=== PATIENT | female | born 1930 | race Caucasian/White ===

== ENCOUNTER → 2016-12-30 | Outpatient (CLI) | payer OTHER ==
[~2016-12-30] MED LIST: ACCUPRIL40 MG PO; ACETAMINOPHEN325 M1 PO; ACTOPLUS MET 11 EAC1 PO; ACTOS 30 MG TAB30 M2 PO; AMLODIPINE BESYL5 MG PO; AZITHROMYCIN 2250 MG PO; BENICAR; BENICAR HCT 401 EACH PO; BENICAR20 MG PO; BISACODYL SUPP10 MG RECTAL; BYSTOLIC10 MG PO; CALCIUM 500 +1 EAC5 PO; COLACE100 MG PO; CONSTULOSE10 GM/152; COUMADIN 2 MG TA2 M1 PO; COUMADIN 5 MG TA5 M1; DEMADEX20 MG PO; ENOXAPARIN30 MG/0.1 SUBQ; FENTANYL PA25 MCG/HR TRANSDERM; FENTANYL PA50 MCG/HR TRANSDERM; FISH OIL 1,001000 M1 PO; FISH OIL 1,001000 M2 PO; FLOMAX0.4 MG PO; GENERLAC10 GM/15 M PO; HYDROCODON-ACE1 EAC7 PO; HYDROCODON-ACE1 EACH PO; HYDROCODONE; HYDROCODONE-AP1 EAC6; HYDROCODONE-APA1 TA1 PO; IRON160 M1 PO; IRON325 PO; LASIX 20 MG TAB20 MG PO; LEVOXYL50 MCG PO; LIDODERM 5%1 PATC1 TOP; LIPITOR10 MG PO; LOPRESSOR25 PO; METFORM; METHADONE HCL 110 M1 PO; MIRALAX17 GM PO; NEURONTIN 300300 M1 PO; NOVOLOG100 UNIT/1 SUBQ; OLMSRTN-AMLDPN1 EAC3 PO; OXYCONTIN10 M1 PO; OXYCONTIN20 M1 PO; PERCOCET 10-321 EACH PO; PERCOCET 5-3251 EACH PO; PIOGLITAZONE-M1 EAC1 PO; PIOGLITAZONE15 MG PO; PLOGLITAZONE; PRILOSEC 20 MG20 MG PO; PRILOSEC20 MG PO; PROCRIT 1010000 U/M1 SUBQ; QUINAPRIL 20 MG20 MG PO; QUINAPRIL PO; RENAL CAPS SOFTG1 MG PO; RESTORIL15 MG PO; RESTORIL30 MG PO; RISAMINE OINTM113 GM TOP; SENOKOT-S1 TA1 PO; SERTRALINE HCL25 M1 PO; SERTRALINE HCL50 MG PO; SIMVASTATIN40 MG PO; TOPROL XL25 MG PO; TRAMADOL 50 MG50 MG PO; TRIBENZOR 40-11 EACH PO; TRIGLIDE160 M1 PO; VITAMIN D1000 UNI1 PO; VITAMIN D31000 UNI2 PO; ZOCOR20 MG PO; [UNRECOGNIZED DRUG - OTHER]; [UNRECOGNIZED DRUG - OTHER] PO
== END ==
LOC: ULTRA 14:04
DX: M79.89 Other specified soft tissue disorders (principal); M79.604 Pain in right leg; M79.605 Pain in left leg

== ENCOUNTER → 2017-10-05 | Outpatient (CLI) | payer OTHER ==
[~2017-10-05] MED LIST changes: +ALPRAZOLAM 0.0.25 M1 PO; +AMARYL1 MG PO; +CEFUROXIME250 MG PO; +METFORMIN HCL500 MG PO; +NEURONTIN600 MG PO; +SENOKOT-S TABL1 EACH PO; -SENOKOT-S1 TA1 PO; +SLOW RELEASE I143 MG PO; +SODIUM BICARBO650 M3 PO; +VOLTAREN100 GM; +ZOLOFT100 MG PO; +ZOLOFT50 MG PO
== END ==
LOC: RAD 14:03
DX: M16.52 Unilateral post-traumatic osteoarthritis, left hip (principal); M41.86 Other forms of scoliosis, lumbar region; M51.36 Other intervertebral disc degeneration, lumbar region; I70.8 Atherosclerosis of other arteries; Z96.642 Presence of left artificial hip joint

== ENCOUNTER 2018-06-17 08:24 | Emergency (ER) | payer OTHER ==
[~2018-06-17] VITALS: Ht 167.6 cm; Wt 63.5 kg
[~2018-06-17 08:24] MED LIST changes: -ALPRAZOLAM 0.0.25 M1 PO; -AMARYL1 MG PO; -CEFUROXIME250 MG PO; -SENOKOT-S TABL1 EACH PO; +SENOKOT-S1 TA1 PO; -ZOLOFT100 MG PO; -ZOLOFT50 MG PO
[2018-06-17] MEDS ORDERED: TRAMADOL 50 MG50 MG PO (12:02)
== END 2018-06-17 12:12 | disposition home or self-care (01) ==
LOC: ER 08:24
PROC: 0PSVXZZ Reposition Left Finger Phalanx, External Approach (ICD-10-PCS; principal; 2018-06-17)
DX: S62.615A Displaced fracture of proximal phalanx of left ring finger, initial encounter for closed fracture (principal); S22.089A Unspecified fracture of T11-T12 vertebra, initial encounter for closed fracture; I10 Essential (primary) hypertension; E78.00 Pure hypercholesterolemia, unspecified; E03.9 Hypothyroidism, unspecified; E11.9 Type 2 diabetes mellitus without complications; Z90.49 Acquired absence of other specified parts of digestive tract; M54.9 Dorsalgia, unspecified; G89.29 Other chronic pain; Z88.0 Allergy status to penicillin; Z88.5 Allergy status to narcotic agent; W01.0XXA Fall on same level from slipping, tripping and stumbling without subsequent striking against object, initial encounter; Y93.89 Activity, other specified; Y92.89 Other specified places as the place of occurrence of the external cause; Y99.8 Other external cause status

== ENCOUNTER 2018-06-24 10:49 | Inpatient (IN) | payer OTHER ==
[~2018-06-24] VITALS: Ht 160 cm; Wt 66.2 kg
--- NOTE | ~2018-06-24 | D ---
[facility] [place] [address] DISCHARGE SUMMARY Name: CHASIDY DOLL Room #: 217-P [facility] IN M.R.#: [id number] Admission: 06/24/18 Attend Phys: Adal Mcintyre Discharge: 06/29/18 Date of : 30 Report #: [id number] THIS REPORT FOR: //name// CC: Rahul Ojeda FINAL DIAGNOSES: 1. Urinary tract infection. 2. Chronic kidney disease, stage 3. 3. Hypertension. 4. Diabetes type 2. 5. Anemia of chronic disease. 6. Debility. 7. Depression. HOSPITAL COURSE: The patient was admitted with weakness. Ultimately, she was found to have a urinary tract infection and treated with antibiotics. During the course of her stay, she learned that her had suddenly, she was tearful and distraught as to be expected. She had family support. I increased her Zoloft and added just some p.r.n. doses of Xanax. She seemed to adjust to the news relatively well and stabilized. She had no other interval complication. PHYSICAL EXAMINATION: GENERAL: On the day of discharge, she was awake and alert, in no distress. LUNGS: Clear. HEART: Regular. ABDOMEN: Soft, normoactive bowel sounds. EXTREMITIES: No edema. DISPOSITION: She will be discharged home with diet and activity as tolerated. She will continue metoprolol, Tylenol, Zoloft 50 mg, Ceftin for 5 more days, Tylenol, Ultram and p.r.n. Xanax. Follow up with Dr. Ojeda in 1 week. Home health to be ordered. Her discharge was held to other day as she was making arrangements for prison placement. <ELECTRONICALLY SIGNED> By: Aleksandar Odom MD 06/30/18 1349 1054 1159 Aleksandar Odom MD /nt
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
[2018-06-24 13:48] LABS: HEMATOCRIT 31.6 % (37.0-47.0); HEMOGLOBIN 10.5 gm/dL (12.0-15.0); MCH 29.8 pg (26.0-34.0); MCV 90.1 fL (80.0-100.0); RBC 3.51 mil/uL (4.20-5.00); RDW 15.2 % (10.5-14.5); WBC 6.2 thou/uL (4.0-11.0)
[2018-06-24 14:02] LABS: ALBUMIN 3.5 g/dL (3.4-5.0); CALCIUM 8.9 mg/dL (8.5-10.1); CREATININE 1.1 mg/dL (0.6-1.0); POTASSIUM 4.5 mmol/L (3.5-5.1); TOTAL BILIRUBIN 0.6 mg/dL (<0.1-1.0); TOTAL PROTEIN 7.1 g/dL (6.4-8.2)
[2018-06-24] MEDS ORDERED: ZOLOFT50 MG PO (14:21)
[2018-06-24] MEDS ORDERED: NEURONTIN600 MG PO (14:22)
[2018-06-24] MEDS ORDERED: METFORMIN HCL500 MG PO (14:22)
[2018-06-24] MEDS ORDERED: AMARYL1 MG PO (14:23)
[2018-06-24 15:58] LABS: URINE BILIRUBIN NEGATIVE (Negative); URINE BLOOD TRACE (Negative); URINE CLARITY CLEAR; URINE COLOR YELLOW; URINE GLUCOSE-RANDOM* NEGATIVE (Negative); URINE KETONES NEGATIVE (Negative); URINE LEUKOCYTES-REFLEX NEGATIVE (Negative); URINE PROTEIN (DIPSTICK) 2+ (Negative); URINE UROBILINOGEN 0.2 E.U./dl (0.2-1.0)
[2018-06-24 16:04] LABS: URINE NITRITE-REFLEX POSITIVE (Negative)
[2018-06-24 16:31] LABS: BACTERIA-REFLEX >30 Many /HPF (None Seen); CASTS None Seen /LPF (None Seen); CRYSTALS None Seen /LPF (None Seen); SQUAMOUS 0-3 Few /LPF (0-3); URINE RBC 0-2 Rare /HPF (0-2); URINE WBC-REFLEX None Seen /HPF (0-5)
[2018-06-24 17:09] VITALS: BP 176/80
[2018-06-24 20:35] VITALS: BP 157/67
[2018-06-25] VITALS (7 sets, daily range): BP systolic 145–170; BP diastolic 55–82
[2018-06-26 04:45] VITALS: BP 145/52
[2018-06-26 07:25] VITALS: BP 162/59
[2018-06-26 11:55] VITALS: BP 148/53
[2018-06-26 16:05] VITALS: BP 143/52
[2018-06-26 20:12] VITALS: BP 132/86
[2018-06-26 20:44] VITALS: BP 124/54
[2018-06-27 05:02] VITALS: BP 150/63
[2018-06-27 08:00] VITALS: BP 150/48
[2018-06-27 11:30] VITALS: BP 151/58
[2018-06-27 16:00] VITALS: BP 150/70
[2018-06-27 20:35] VITALS: BP 146/49
[2018-06-28 03:31] LABS: HEMATOCRIT 27.8 % (37.0-47.0); HEMOGLOBIN 9.1 gm/dL (12.0-15.0); MCH 29.5 pg (26.0-34.0); MCHC 32.6 g/dL (28.0-37.0); MCV 90.5 fL (80.0-100.0); RBC 3.07 mil/uL (4.20-5.00); RDW 15.8 % (10.5-14.5); WBC 4.6 thou/uL (4.0-11.0)
[2018-06-28 03:42] LABS: CALCIUM 8.4 mg/dL (8.5-10.1); CREATININE 1.1 mg/dL (0.6-1.0); POTASSIUM 4.8 mmol/L (3.5-5.1)
[2018-06-28 04:45] VITALS: BP 138/46
[2018-06-28 07:54] VITALS: BP 159/53
[2018-06-28 11:45] VITALS: BP 154/60
[2018-06-28 15:03] VITALS: BP 144/59
[2018-06-28 20:30] VITALS: BP 158/68
[2018-06-29] VITALS (7 sets, daily range): BP systolic 106–173; BP diastolic 61–67
[2018-06-29] MEDS ORDERED: ZOLOFT100 MG PO (10:40)
[2018-06-29] MEDS ORDERED: ALPRAZOLAM 0.0.25 M1 PO (10:40)
[2018-06-29] MEDS ORDERED: CEFUROXIME250 MG PO (10:41)
== END 2018-06-29 16:32 | disposition home health service (06) | DRG 690 ==
LOC: 2N 10:49 → ENTRNSPT 06-29 16:24 → 2N 06-29 16:32
PROVIDERS: Internal Medicine Geriatric Medicine
DX: N39.0 Urinary tract infection, site not specified (principal); I12.9 Hypertensive chronic kidney disease with stage 1 through stage 4 chronic kidney disease, or unspecified chronic kidney disease; N18.3 Chronic kidney disease, stage 3 (moderate); E11.22 Type 2 diabetes mellitus with diabetic chronic kidney disease; R54 Age-related physical debility; F41.9 Anxiety disorder, unspecified; D63.8 Anemia in other chronic diseases classified elsewhere; F32.9 Major depressive disorder, single episode, unspecified; Z90.49 Acquired absence of other specified parts of digestive tract; Z95.1 Presence of aortocoronary bypass graft; Z79.82 Long term (current) use of aspirin; Z79.899 Other long term (current) drug therapy; Z88.0 Allergy status to penicillin; Z88.5 Allergy status to narcotic agent; Z28.21 Immunization not carried out because of patient refusal
CPT/HCPCS: 10081

== ENCOUNTER 2018-07-12 17:14 | Inpatient (IN) | payer OTHER ==
[~2018-07-12] VITALS: Ht 160 cm; Wt 58.5 kg
--- NOTE | ~2018-07-12 | H ---
[facility] [place] [address] HISTORY AND PHYSICAL Name: CHASIDY DOLL Room #: 226-P ADM IN M.R.#: [id number] Admission: 07/12/18 Attend Phys: Aleksandar Odom MD Discharge: Date of : 30 Report #: [id number] THIS REPORT FOR: //name// CC: Rahul Odom DATE OF SERVICE: 07/12/2018 CHIEF COMPLAINT: Weakness. HISTORY OF PRESENT ILLNESS: The patient is an 88-year-old female with multiple medical problems, is admitted from the office with complaints of weakness. She reports "just not feeling well." When I asked her in regards to specific symptoms, she says she just feels weak and tired and does not want to do anything, eat, get out of bed and just feels "weak all over." I asked her specifically about chest pain, shortness of breath, abdominal symptoms, which she denies. She has had several recent hospitalizations and skilled stays along with home health and a caregiver at home. Unfortunately, her a little over 2 weeks ago while she was hospitalized, she says that has been a big loss and she just does not feel well. PAST MEDICAL HISTORY: Diabetes type 2, hypothyroidism, hypertension, chronic kidney disease stage 3-4, anemia of chronic disease. PAST SURGICAL HISTORY: She has had a hip fracture repair. FAMILY HISTORY: Noncontributory. SOCIAL HISTORY: She was living in her home with supportive caregiver 10 hours a day. She has supportive family in town. No chronic alcohol or tobacco use. ALLERGIES: PENICILLIN and MORPHINE. MEDICATIONS: Metoprolol, Flomax, tramadol, Zoloft, Levoxyl. REVIEW OF SYSTEMS: She denies headache, chest pain, shortness of breath, nausea, vomiting, abdominal pain, diarrhea, constipation, dysuria, syncope, joint pain. OBJECTIVE: VITAL SIGNS: Temperature 36.9, pulse 53, respirations 16, blood pressure 169/84, O2 sat 94% on room air. GENERAL: She is awake and alert, lying in bed in a dark room. She has not eaten breakfast. HEAD AND NECK: Unremarkable. LUNGS: Clear. [facility] [address] [place] [address] HISTORY AND PHYSICAL Name: CHASIDY DOLL Room #: 226-P ADM IN M.R.#: [id number] Admission: 07/12/18 Attend Phys: Aleksandar Odom MD Discharge: Date of : 30 Report #: [id number] HEART: Regular. ABDOMEN: Soft, normoactive bowel sounds. EXTREMITIES: No edema. NEUROLOGIC: Motor strength intact throughout, globally about 3-4/5. LABORATORY DATA: Reviewed. ASSESSMENT: 1. General weakness. 2. Hypertension. 3. Chronic kidney disease, stage 3. 4. Anemia of chronic disease. 5. Situational depression. 6. Mild protein-calorie malnutrition. PLAN: We will try to rule out any medical cause of her symptoms; however, we cannot ignore the fact that her and there may be a significant emotional component here. Her Zoloft has already been increased to 100 mg a day. I will have social work talk to her and try with therapy. I will need to see what direction the family wants to go. She may need 24-hour care at this point. <ELECTRONICALLY SIGNED> By: Aleksandar Odom MD 07/13/18 1218 1029 1127 Aleksandar Odom MD /nt
--- NOTE | ~2018-07-12 | D ---
[facility] [place] [address] DISCHARGE SUMMARY Name: CHASIDY DOLL Room #: 226-P [facility] IN M.R.#: [id number] Admission: 07/12/18 Attend Phys: Aleksandar Odom MD Discharge: 07/15/18 Date of : 30 Report #: [id number] THIS REPORT FOR: //name// CC: Rahul Odom FINAL DIAGNOSES: 1. Age-related debility. 2. Situational depression. 3. Hypertension. 4. Chronic kidney disease stage 4. 5. Diabetes type 2. HOSPITAL COURSE: The patient was admitted from home with weakness. A stroke and infection were ruled out. Other lab data was fairly consistent with baseline known kidney disease. Blood sugars were stable off oral treatment. She declined psychiatric referral for adjustment of her medication. Otherwise, usual medicines were continued from home. She participated with therapy and appetite was improved. As mentioned, stroke was ruled out with a CT. PHYSICAL EXAMINATION: GENERAL: On the day of discharge, she was awake and alert. VITAL SIGNS: Stable. LUNGS: Clear. HEART: Regular. ABDOMEN: Soft, normoactive bowel sounds. EXTREMITIES: No edema. DISPOSITION: To be discharged to home with home health, diabetic diet, activity as tolerated, resume all usual medications. Follow up with Dr. Ojeda 2 weeks. <ELECTRONICALLY SIGNED> By: Aleksandar Odom MD 07/16/18 1110 1039 1318 Aleksandar Odom MD /terry
[~2018-07-12 17:14] MED LIST changes: +ALPRAZOLAM 0.0.25 M1 PO; +AMARYL1 MG PO; +CEFUROXIME250 MG PO; +SENOKOT-S TABL1 EACH PO; -SENOKOT-S1 TA1 PO; +ZOLOFT100 MG PO; +ZOLOFT50 MG PO
[2018-07-12 17:44] VITALS: BP 172/90
[2018-07-12 19:48] VITALS: BP 175/83
[2018-07-13 00:08] VITALS: BP 179/88
[2018-07-13 04:29] LABS: HEMATOCRIT 27.7 % (37.0-47.0); HEMOGLOBIN 9.1 gm/dL (12.0-15.0); MCH 29.4 pg (26.0-34.0); MCHC 32.9 g/dL (28.0-37.0); MCV 89.2 fL (80.0-100.0); RBC 3.11 mil/uL (4.20-5.00); RDW 15.8 % (10.5-14.5); WBC 5.5 thou/uL (4.0-11.0)
[2018-07-13 04:54] LABS: CREATININE 1.3 mg/dL (0.6-1.0); POTASSIUM 4.4 mmol/L (3.5-5.1); TOTAL BILIRUBIN 0.5 mg/dL (<0.1-1.0); TOTAL PROTEIN 6.2 g/dL (6.4-8.2)
[2018-07-13 05:47] VITALS: BP 157/62
[2018-07-13 08:22] VITALS: BP 169/84
[2018-07-13 08:31] VITALS: BP 169/84
[2018-07-13 21:12] VITALS: BP 159/70
[2018-07-13 23:41] LABS: URINE BILIRUBIN NEGATIVE (Negative); URINE BLOOD 2+ (Negative); URINE CLARITY CLEAR; URINE COLOR YELLOW; URINE GLUCOSE-RANDOM* NEGATIVE (Negative); URINE KETONES NEGATIVE (Negative); URINE LEUKOCYTES-REFLEX NEGATIVE (Negative); URINE NITRITE-REFLEX NEGATIVE (Negative); URINE PROTEIN (DIPSTICK) 3+ (Negative); URINE SPECIFIC GRAVITY >= 1.030 (1.005-1.035); URINE UROBILINOGEN 0.2 E.U./dl (0.2-1.0)
[2018-07-13 23:54] LABS: MUCUS 0-3 Light strn/LPF (None Seen); SQUAMOUS 0-3 Few /LPF (0-3)
[2018-07-13 23:55] LABS: BACTERIA-REFLEX None Seen /HPF (None Seen); COARSE GRANULAR CASTS 0-3 Few /LPF (None Seen); CRYSTALS None Seen /LPF (None Seen); HYALINE CASTS 0-3 Few /LPF (None Seen); URINE RBC 0-2 Rare /HPF (0-2); URINE WBC-REFLEX 0-5 Rare /HPF (0-5)
[2018-07-14 08:30] VITALS: BP 175/119
[2018-07-14 21:11] VITALS: BP 155/65
[2018-07-15 08:07] VITALS: BP 149/60
[2018-07-15 08:29] VITALS: BP 149/60
== END 2018-07-15 18:45 | disposition home health service (06) | DRG 948 ==
LOC: SICU 17:14 → 3W 17:14 → SICU 07-13 09:10 → ENTRNSPT 07-15 17:40 → SICU 07-15 18:45
PROVIDERS: Internal Medicine; Internal Medicine Geriatric Medicine
DX: R53.1 Weakness (principal); E44.1 Mild protein-calorie malnutrition; N18.4 Chronic kidney disease, stage 4 (severe); R54 Age-related physical debility; F32.9 Major depressive disorder, single episode, unspecified; I12.9 Hypertensive chronic kidney disease with stage 1 through stage 4 chronic kidney disease, or unspecified chronic kidney disease; E11.22 Type 2 diabetes mellitus with diabetic chronic kidney disease; D63.8 Anemia in other chronic diseases classified elsewhere; E03.9 Hypothyroidism, unspecified; Z87.81 Personal history of (healed) traumatic fracture; Z79.899 Other long term (current) drug therapy; Z88.0 Allergy status to penicillin; Z88.5 Allergy status to narcotic agent; Z23 Encounter for immunization
CPT/HCPCS: 10779; 15002

== ENCOUNTER 2018-07-17 11:13 | Inpatient (IN) | payer OTHER ==
[~2018-07-17] VITALS: Ht 160 cm; Wt 63.5 kg
--- NOTE | ~2018-07-17 | EKG ---
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 : 1930 Requested By: Esther Schuler Order Number: [id number] MD: Ramon Rodas Measurements Intervals [place] Rate: 72 P: 103 LA: 179 QRS: 105 QRSD: 108 T: 234 QT: 449 QTc: 492 Interpretive Statements Sinus arrhythmia Anterior infarct, age indeterminate Compared to ECG 05/21/2018 15:23:24 Ectopic atrial rhythm no longer present Incomplete right bundle-branch block no longer present ST (T wave) deviation no longer present Myocardial infarct finding still present Electronically Signed On 07-18-2018 10:19:10 LOIN PULLER by Ramon Rodas [email or web address] <ELECTRONICALLY SIGNED> By: Ramon Rodas MD 07/18/18 1019 1127 1127 Ramon Rodas MD /EPI
--- NOTE | ~2018-07-17 | H ---
[facility] [place] [address] HISTORY AND PHYSICAL Name: CHASIDY DOLL Room #: 224-P ADM IN M.R.#: [id number] Admission: 07/17/18 Attend Phys: Aleksandar Odom MD Discharge: Date of : 30 Report #: [id number] THIS REPORT FOR: //name// CC: Rahul Odom DATE OF SERVICE: 07/17/2018 CHIEF COMPLAINT: Weakness. HISTORY OF PRESENT ILLNESS: The patient is an 88-year-old female who came back to the Emergency Room with weakness. Her daughter called saying that she had been lying in bed for 24 hours and really had not been eating or drinking much. She is refusing to get out of bed. This was similar to her hospitalization last week. She had previously been seen in the office about 10 days ago and then again about a week ago. At that point, she was admitted. Last hospitalization, lab data was basically stable per baseline. Blood sugars and vitals were stable. Urinalysis was negative for signs of infection, in fact did not require culture. The last 2 days of her hospital stay most recently she was up and alert, eating, working with therapy to some degree and had a more active pleasant mood, especially with the presence of her caregiver. She was discharged home last and then her daughter says that she spent most of Thursday into Thursday lying in bed. Today, she says she just "does not feel well," but really cannot specify anything. She does not have any chest pain, shortness of breath, fever, productive cough, nausea, vomiting, diarrhea, dysuria or generalized pain. She says overall she just does not feel well. PAST MEDICAL HISTORY: Hypertension, chronic kidney disease stage 3, diabetes type 2, venous stasis. She has an old hip fracture. Remote history of coronary disease, depression, hypothyroidism. PAST SURGICAL HISTORY: Noncontributory. FAMILY HISTORY: Unknown. SOCIAL HISTORY: Her 3 weeks ago. No chronic alcohol or tobacco use. ALLERGIES: PENICILLIN AND MORPHINE. MEDICATIONS: Flomax, metoprolol, tramadol, Tylenol, Zoloft, Senokot, Levoxyl. REVIEW OF SYSTEMS: She denies headache, chest pain, fever, chills, GI symptoms, dysuria or hematuria, joint pain, orthopnea. OBJECTIVE: [address] [address] [facility] IN M.R.#: [id number] Admission: 07/17/18 Attend Phys: Aleksandar Odom MD Discharge: Date of : 30 Report #: [id number] VITAL SIGNS: Temperature 36.3, pulse 65, respirations 18, blood pressure 157/67, O2 sat 94-97% on room air. GENERAL: She is awake and alert, lying in bed. HEAD AND NECK: Unremarkable. LUNGS: Clear. HEART: Regular. ABDOMEN: Soft, normoactive bowel sounds. EXTREMITIES: No edema. NEUROLOGIC: Global strength 3/5 throughout. LABORATORY DATA: Urinalysis now showing 2+ leukocyte esterase, 6-15 white blood cells and few bacteria. Cultures pending. White count normal, hemoglobin 10, creatinine 1.1. BNP was 30,000. TSH 2. Chest x-ray suggesting pulmonary edema. ASSESSMENT: 1. Cystitis, acute. 2. Hypertensive heart disease. 3. Chronic kidney disease, stage 3. 4. Diabetes type 2. 5. Situational depression with recent loss of her . 6. Pulmonary edema. PLAN: Empiric antibiotics have been ordered pending the culture based on her urinalysis from about a month ago and culture then. I will repeat her echo compare to 2 years ago to assess LV function. Despite elevated BNP and chest x-ray finding she denies any respiratory symptoms and her sats are stable. I will resume a low dose of torsemide with followup lab data, incentive spirometry therapies, increase activity and social work assessment for her placement needs. <ELECTRONICALLY SIGNED> By: Aleksandar Odom MD 07/19/18 0900 0816 1135 Aleksandar Odom MD /nt
--- NOTE | ~2018-07-17 | 2DMMODE ---
[facility] [address] [place] [address] 2 D/M-MODE ECHOCARDIOGRAM Name: CHASIDY DOLL Room #: 224-P ADM IN M.R.#: [id number] Admission: 07/17/18 Attend Phys: Adal Hills Discharge: Date of : 30 Date of Service: 07/19/18 1353 Report #: [id number] THIS REPORT FOR: //name// APPROVED REPORT Study performed: 07/19/2018 11:55:08 EXAM: Comprehensive 2D, Doppler, and color-flow Echocardiogram Patient Location: Bedside Room #: 224 Status: routine BSA: 1.66 HR: 65 bpm BP: 156/65 mmHg Rhythm: NSR Other Information Study Quality: Adequate Indications Diabetes CAD Hypertension/HDD 2D Dimensions RVDd: 44.87 mm IVSd: 12.00 (7-11mm) LVOT Diam: 20.85 (18-24mm) LVDd: 53.00 mm PWd: 13.00 (7-11mm) Ascending Ao: 37.87 (22-36mm) LVDs: 43.00 (25-40mm) Aortic Root: 31.94 mm IVC: 2310.00 mm Volumes Left Atrial Volume (Systole) Single Plane 4CH: 39.97 mL Single Plane 2CH: 84.27 mL LA ESV Index: 38.42 mL/m2 Aortic Valve AoV Peak Ga.: 1.77 m/s AO Peak Gr.: 12.56 mmHg LVOT Max P.76 mmHg LVOT Max V: 0.83 m/s JAYLON Vmax: 1.60 cm2 AI Vmax: 4.26 m/s AI Coosa: 2.98 m/s2 [facility] [address] [address] 2 D/M-MODE ECHOCARDIOGRAM Name: CHASIDY DOLL Room #: 224-[facility]#: [id number] Admission: 07/17/18 Attend Phys: Adal Hills Discharge: Date of : 30 Date of Service: 07/19/18 1353 Report #: [id number] AI PHT: 415.05 ms Mitral Valve E/A Ratio: 2.0 MV Decel. Time: 155.20 ms MV E Max Ga.: 1.05 m/s MV A Ga.: 0.53 m/s MV Max Ga.: 6.51 m/s MV Mean Ga.: 4.70 m/s MV PHT: 45.01 ms IVRT: 101.50 ms Pulmonary Valve PV Peak Ga.: 0.75 m/s PV Peak Gr.: 2.30 mmHg OH End Vmax: 1.56 m/s Tricuspid Valve TR Peak Ga.: 3.57 m/s RAP Estimate: 10.00 mmHg TR Peak Gr.: 50.96 mmHg PA Pressure: 61.00 mmHg Left Ventricle The left ventricle is normal size. There is global hypokinesis of the left ventricle. Mild concentric left ventricular hypertrophy. Left ventricular systolic function is moderately decreased. LVEF is 30-35%. The left ventricular diastolic function is abnormal. Right Ventricle The right ventricle is normal size. Right ventricular systolic function is moderately reduced. Atria Left atrium is dilated. Right atrium is dilated. Aortic Valve Aortic valve is calcified. Mild aortic regurgitation. There is no aortic valvular stenosis. Mitral Valve The mitral valve is normal in structure. Moderate to severe mitral regurgitation No evidence of mitral valve stenosis. Tricuspid Valve The tricuspid valve is normal in structure. Moderate tricuspid regurgitation. Estimated PAP of 60 mmHg. [facility] [address] [place] [address] 2 D/M-MODE ECHOCARDIOGRAM Name: CHASIDY DOLL Room #: 224-P [facility] IN M.R.#: [id number] Admission: 07/17/18 Attend Phys: Adal Hills Discharge: Date of : 30 Date of Service: 07/19/18 1353 Report #: [id number] Pulmonic Valve The pulmonary valve is normal in structure. Moderate pulmonic regurgitation. Great Vessels The aortic root is normal in size. The ascending aorta is mildly dilated. IVC is dilated and collapses <50% with inspiration. Pericardium There is no pericardial effusion. <Conclusion> Left ventricular systolic function is moderately decreased. LVEF is 30-35%. Both atria are dilated. Aortic valve is calcified. Mild aortic regurgitation, no stenosis. The mitral valve is normal in structure. Moderate to severe mitral regurgitation Moderate tricuspid regurgitation. Estimated pulmonary artery pressure of 60 mmHg. There is no pericardial effusion. <ELECTRONICALLY SIGNED> By: Gautam Montano MD, [facility] 07/19/18 1353 1353 135 Gautam Montano MD, FACC /INF
--- NOTE | ~2018-07-17 | D ---
[facility] [place] [address] DISCHARGE SUMMARY Name: CHASIDY DOLL Room #: 224-P [facility] IN M.R.#: [id number] Admission: 07/17/18 Attend Phys: Aleksandar Odom MD Discharge: 07/24/18 Date of : 30 Report #: [id number] THIS REPORT FOR: //name// CC: Rahul Odom DATE OF SERVICE: 07/24/2018 FINAL DIAGNOSES: 1. Cardiomyopathy. 2. Hypertension. 3. Diabetes type 2. 4. Chronic kidney disease, stage 4. 5. Depression. HOSPITAL COURSE: The patient was admitted with weakness from home. She has been having difficulties managing at home. After the loss of her , she has had an in-home caregiver, but at night, she is having difficulty when she is staying alone. She had general vague symptoms of "just not feeling well." Lab and x-ray data were obtained. Occult infection was ruled out including negative urine culture and antibiotics were discontinued. Echocardiogram revealed decreased ejection fraction around 30%, which is a change from 2 years ago. She was seen by Dr. Wilson. We both recommended just medical treatment with beta sis, ARB and diuretic. Diabetes was stable off oral medication, which has been consistent for several months. She declined Psychology or Psychiatry evaluation. She declined admission to skilled rehabilitation center. utility worker forge and myself worked with her family extensively to come up with a care plan at home, so she could remain stable. DISPOSITION: She is discharged to the care of her family to home with cardiac and diabetic diet. Home health. Follow up with Dr. Ojeda in 1 week. MEDICATIONS: Will be Coreg 3.125 mg twice a day, losartan 25 mg, aspirin 81 mg, torsemide 20 mg, Levoxyl 50 mcg, Tylenol, Senokot, Flomax, tramadol, Zoloft 100 mg. She is instructed to discontinue Lopressor. <ELECTRONICALLY SIGNED> By: Aleksandar Odom MD 07/27/18 1006 1331 1619 Aleksandar Odom MD /nt
[2018-07-17 11:17] VITALS: BP 184/69
[2018-07-17 11:48] LABS: ABSOLUTE NEUTROPHILS 4.2 thou/uL (1.4-8.2); BASOPHILS 0.7 % (0.0-2.0); HEMATOCRIT 30.2 % (37.0-47.0); HEMOGLOBIN 10.2 gm/dL (12.0-15.0); MCH 30.2 pg (26.0-34.0); MCHC 33.8 g/dL (28.0-37.0); MCV 89.3 fL (80.0-100.0); PLATELET COUNT 154 thou/uL (150-400); POLYS 69.3 % (36.0-66.0); RBC 3.39 mil/uL (4.20-5.00)
[2018-07-17 11:53] LABS: URINE BILIRUBIN NEGATIVE (Negative); URINE BLOOD 2+ (Negative); URINE CLARITY CLEAR; URINE COLOR YELLOW; URINE GLUCOSE-RANDOM* NEGATIVE (Negative); URINE KETONES NEGATIVE (Negative); URINE NITRITE-REFLEX NEGATIVE (Negative); URINE PROTEIN (DIPSTICK) 2+ (Negative); URINE SPECIFIC GRAVITY >= 1.030 (1.005-1.035); URINE UROBILINOGEN 0.2 E.U./dl (0.2-1.0)
[2018-07-17 11:56] LABS: ANION GAP 12 mmol/L (7-16); BUN 35 mg/dL (7-18); CALCIUM 8.8 mg/dL (8.5-10.1); CHLORIDE 105 mmol/L (98-107); CO2 23 mmol/L (21-32); CREATININE 1.1 mg/dL (0.6-1.0); GLUCOSE 180 mg/dL (74-106); POTASSIUM 4.2 mmol/L (3.5-5.1); SODIUM 140 mmol/L (136-145)
[2018-07-17 12:01] LABS: URINE LEUKOCYTES-REFLEX 2+ (Negative)
[2018-07-17 12:04] LABS: TROPONIN-I <0.06 ng/mL (<0.06)
[2018-07-17 12:11] LABS: AMORPHOUS URATES Moderate /LPF (None Seen); BACTERIA-REFLEX 1-9 Few /HPF (None Seen); CASTS None Seen /LPF (None Seen); SQUAMOUS None Seen /LPF (0-3); URINE RBC 3-10 Few /HPF (0-2); URINE WBC-REFLEX 6-15 Few /HPF (0-5)
[2018-07-17 13:03] VITALS: BP 178/75
[2018-07-17 13:20] VITALS: BP 174/62
[2018-07-17 13:43] VITALS: BP 164/79
[2018-07-17 16:05] VITALS: BP 149/56
[2018-07-17 20:00] VITALS: BP 175/56
[2018-07-18 04:30] VITALS: BP 178/74
[2018-07-18 07:15] VITALS: BP 157/67
[2018-07-18 20:00] VITALS: BP 156/65
[2018-07-19 06:53] LABS: HEMATOCRIT 29.8 % (37.0-47.0); HEMOGLOBIN 9.7 gm/dL (12.0-15.0); MCH 28.9 pg (26.0-34.0); MCHC 32.5 g/dL (28.0-37.0); RBC 3.35 mil/uL (4.20-5.00); RDW 15.6 % (10.5-14.5); WBC 4.8 thou/uL (4.0-11.0)
[2018-07-19 07:05] LABS: CALCIUM 8.6 mg/dL (8.5-10.1); CREATININE 1.3 mg/dL (0.6-1.0); POTASSIUM 4.2 mmol/L (3.5-5.1)
[2018-07-19 07:50] VITALS: BP 164/72
[2018-07-19 12:46] LABS: HEMATOCRIT 29.9 % (37.0-47.0); HEMOGLOBIN 9.8 gm/dL (12.0-15.0); MCH 28.8 pg (26.0-34.0); MCHC 32.8 g/dL (28.0-37.0); MCV 87.8 fL (80.0-100.0); RBC 3.41 mil/uL (4.20-5.00); RDW 15.5 % (10.5-14.5); WBC 5.2 thou/uL (4.0-11.0)
[2018-07-19 12:54] LABS: CREATININE 1.4 mg/dL (0.6-1.0); POTASSIUM 4.3 mmol/L (3.5-5.1)
[2018-07-19 12:55] LABS: CALCIUM 8.9 mg/dL (8.5-10.1)
[2018-07-19 22:51] VITALS: BP 145/57
[2018-07-20 07:25] LABS: HEMATOCRIT 28.3 % (37.0-47.0); HEMOGLOBIN 9.6 gm/dL (12.0-15.0); MCH 29.8 pg (26.0-34.0); MCV 87.6 fL (80.0-100.0); RBC 3.24 mil/uL (4.20-5.00); RDW 15.7 % (10.5-14.5); WBC 4.6 thou/uL (4.0-11.0)
[2018-07-20 07:43] LABS: CALCIUM 8.4 mg/dL (8.5-10.1); CREATININE 1.4 mg/dL (0.6-1.0); POTASSIUM 4.1 mmol/L (3.5-5.1); TOTAL BILIRUBIN 0.4 mg/dL (<0.1-1.0); TOTAL PROTEIN 5.8 g/dL (6.4-8.2)
[2018-07-20 08:09] VITALS: BP 179/60
[2018-07-20 11:52] VITALS: BP 155/66
[2018-07-20 18:18] VITALS: BP 174/71
[2018-07-20 22:53] VITALS: BP 142/51
[2018-07-21 07:39] LABS: CALCIUM 8.2 mg/dL (8.5-10.1); CREATININE 1.4 mg/dL (0.6-1.0); POTASSIUM 3.8 mmol/L (3.5-5.1)
[2018-07-21 07:41] VITALS: BP 153/57
[2018-07-21 20:12] VITALS: BP 130/50
[2018-07-22 08:12] VITALS: BP 136/55
[2018-07-22 08:12] LABS: CALCIUM 8.2 mg/dL (8.5-10.1); CREATININE 1.3 mg/dL (0.6-1.0); POTASSIUM 3.8 mmol/L (3.5-5.1)
[2018-07-22 09:52] VITALS: BP 136/55
[2018-07-22 19:23] VITALS: BP 139/53
[2018-07-22 19:44] VITALS: BP 139/53
[2018-07-23 07:35] VITALS: BP 157/66
[2018-07-23] MEDS ORDERED: COZAAR 25 MG TA25 M1 PO (11:32)
[2018-07-23] MEDS ORDERED: CARVEDILOL3.125 MG PO (11:32)
[2018-07-23] MEDS ORDERED: TORSEMIDE20 MG PO (11:33)
[2018-07-23] MEDS ORDERED: ASA81BEC PO (11:33)
[2018-07-23 21:03] VITALS: BP 121/71
[2018-07-24 07:58] VITALS: BP 151/60
[2018-07-24 08:13] VITALS: BP 151/60
== END 2018-07-24 14:15 | disposition home health service (06) | DRG 690 ==
LOC: ER 11:13 → 4E 12:45 → SICU 12:45 → EROBS 12:45 → 4E 13:28 → SICU 07-18 18:37
PROVIDERS: Internal Medicine Geriatric Medicine; Student in an Organized Health Care Education/Training Program
DX: N30.00 Acute cystitis without hematuria (principal); I42.9 Cardiomyopathy, unspecified; N18.4 Chronic kidney disease, stage 4 (severe); E11.22 Type 2 diabetes mellitus with diabetic chronic kidney disease; I13.10 Hypertensive heart and chronic kidney disease without heart failure, with stage 1 through stage 4 chronic kidney disease, or unspecified chronic kidney disease; F32.9 Major depressive disorder, single episode, unspecified; I25.10 Atherosclerotic heart disease of native coronary artery without angina pectoris; E03.9 Hypothyroidism, unspecified; E78.5 Hyperlipidemia, unspecified; Z95.1 Presence of aortocoronary bypass graft; Z90.49 Acquired absence of other specified parts of digestive tract; Z87.81 Personal history of (healed) traumatic fracture; Z91.81 History of falling; Z79.899 Other long term (current) drug therapy; Z88.0 Allergy status to penicillin; Z88.5 Allergy status to narcotic agent; Z82.49 Family history of ischemic heart disease and other diseases of the circulatory system
CPT/HCPCS: 10084; 15002

== ENCOUNTER → 2019-10-11 | Outpatient (CLI) | payer OTHER ==
[~2019-10-11] MED LIST changes: +ASA81BEC PO; +CARVEDILOL3.125 MG PO; +COZAAR 25 MG TA25 M1 PO; +TORSEMIDE20 MG PO
== END ==
LOC: HYPER 08:04
DX: E11.622 Type 2 diabetes mellitus with other skin ulcer (principal); L97.211 Non-pressure chronic ulcer of right calf limited to breakdown of skin; L97.811 Non-pressure chronic ulcer of other part of right lower leg limited to breakdown of skin; I89.0 Lymphedema, not elsewhere classified; E11.36 Type 2 diabetes mellitus with diabetic cataract; E78.5 Hyperlipidemia, unspecified; I11.0 Hypertensive heart disease with heart failure; I50.9 Heart failure, unspecified; M10.9 Gout, unspecified; M19.90 Unspecified osteoarthritis, unspecified site; Z98.41 Cataract extraction status, right eye; Z98.42 Cataract extraction status, left eye; Z95.1 Presence of aortocoronary bypass graft; Z79.82 Long term (current) use of aspirin

== ENCOUNTER → 2019-10-17 | Outpatient (CLI) | payer OTHER | LOC: SJCVCIMAG 08:51 | DX: I89.0 Lymphedema, not elsewhere classified (principal); L97.211 Non-pressure chronic ulcer of right calf limited to breakdown of skin; L97.811 Non-pressure chronic ulcer of other part of right lower leg limited to breakdown of skin ==

== ENCOUNTER → 2019-10-31 | Outpatient (CLI) | payer OTHER | LOC: HYPER 08:55 | DX: E11.622 Type 2 diabetes mellitus with other skin ulcer (principal); L97.211 Non-pressure chronic ulcer of right calf limited to breakdown of skin; I89.0 Lymphedema, not elsewhere classified; E11.36 Type 2 diabetes mellitus with diabetic cataract; E07.89 Other specified disorders of thyroid; E78.5 Hyperlipidemia, unspecified; I11.0 Hypertensive heart disease with heart failure; I50.9 Heart failure, unspecified; M19.90 Unspecified osteoarthritis, unspecified site; M10.9 Gout, unspecified; Z79.84 Long term (current) use of oral hypoglycemic drugs; Z95.1 Presence of aortocoronary bypass graft; Z96.649 Presence of unspecified artificial hip joint ==

== ENCOUNTER → 2019-12-07 | Outpatient (CLI) | payer OTHER | LOC: HYPER 09:15 | DX: E11.622 Type 2 diabetes mellitus with other skin ulcer (principal); L97.821 Non-pressure chronic ulcer of other part of left lower leg limited to breakdown of skin; I89.0 Lymphedema, not elsewhere classified; R60.0 Localized edema; E11.36 Type 2 diabetes mellitus with diabetic cataract; E78.5 Hyperlipidemia, unspecified; E07.89 Other specified disorders of thyroid; I11.0 Hypertensive heart disease with heart failure; I50.9 Heart failure, unspecified; M19.90 Unspecified osteoarthritis, unspecified site; M10.9 Gout, unspecified; Z79.84 Long term (current) use of oral hypoglycemic drugs; Z96.649 Presence of unspecified artificial hip joint ==

== ENCOUNTER → 2019-12-26 | Outpatient (CLI) | payer OTHER | LOC: HYPER 09:59 | DX: E11.622 Type 2 diabetes mellitus with other skin ulcer (principal); L97.821 Non-pressure chronic ulcer of other part of left lower leg limited to breakdown of skin; I89.0 Lymphedema, not elsewhere classified; R60.0 Localized edema; I11.0 Hypertensive heart disease with heart failure; I50.9 Heart failure, unspecified; E78.5 Hyperlipidemia, unspecified; E07.89 Other specified disorders of thyroid; M19.90 Unspecified osteoarthritis, unspecified site; M10.9 Gout, unspecified; Z98.49 Cataract extraction status, unspecified eye; Z79.84 Long term (current) use of oral hypoglycemic drugs; Z96.649 Presence of unspecified artificial hip joint ==

== ENCOUNTER → 2020-01-04 | Outpatient (CLI) | payer OTHER | LOC: HYPER 10:38 | DX: E11.622 Type 2 diabetes mellitus with other skin ulcer (principal); L97.822 Non-pressure chronic ulcer of other part of left lower leg with fat layer exposed; L97.812 Non-pressure chronic ulcer of other part of right lower leg with fat layer exposed; I89.0 Lymphedema, not elsewhere classified; E11.36 Type 2 diabetes mellitus with diabetic cataract; E78.5 Hyperlipidemia, unspecified; E07.89 Other specified disorders of thyroid; R60.0 Localized edema; I11.0 Hypertensive heart disease with heart failure; I50.9 Heart failure, unspecified; M19.90 Unspecified osteoarthritis, unspecified site; M10.9 Gout, unspecified; Z79.84 Long term (current) use of oral hypoglycemic drugs; Z95.1 Presence of aortocoronary bypass graft; Z96.649 Presence of unspecified artificial hip joint ==

== ENCOUNTER → 2020-01-17 | Outpatient (CLI) | payer OTHER | LOC: HYPER 10:10 | DX: E11.622 Type 2 diabetes mellitus with other skin ulcer (principal); L97.822 Non-pressure chronic ulcer of other part of left lower leg with fat layer exposed; L97.812 Non-pressure chronic ulcer of other part of right lower leg with fat layer exposed; L84 Corns and callosities; E11.36 Type 2 diabetes mellitus with diabetic cataract; E07.89 Other specified disorders of thyroid; E78.5 Hyperlipidemia, unspecified; I89.0 Lymphedema, not elsewhere classified; R60.0 Localized edema; I11.0 Hypertensive heart disease with heart failure; I50.9 Heart failure, unspecified; M19.90 Unspecified osteoarthritis, unspecified site; M10.9 Gout, unspecified; Z79.84 Long term (current) use of oral hypoglycemic drugs; Z95.1 Presence of aortocoronary bypass graft; Z96.649 Presence of unspecified artificial hip joint ==

== ENCOUNTER 2020-01-20 09:56 | Inpatient (IN) | payer MEDICARE ==
[~2020-01-20] VITALS: Ht 165.1 cm; Wt 68.0 kg
--- NOTE | ~2020-01-20 | EMS ---
[address] [address] EMS Patient Care Report Name: CHASIDY DOLL Room #: 170-16 ADM IN M.R.#: [id number] Admission: 01/20/20 Attend Phys: Michael Trejo MD Discharge: Date of : 30 Report #: [id number] THIS REPORT FOR: //name// Report Transmitted: 01/20/2020 12:06 EMS Care Summary [facility] MED-ACT Incident [id number] @ 01/20/2020 09:11 Incident Location [address] [place] [address] Patient CHASIDY DOLL Female, 89 Years 1930 Patient Address [address] [place] [address] Patient History Diabetes,Hypertension (HTN),Depression, Patient Allergies Codeine,Penicillin allergy,Morphine, Patient Medications Losartan, Synthroid, Torsemide, Tamsulosin, Sertraline, Carvedilol, Hydrocodone, Glimepiride, Chief Complaint Pain in legs Disposition Transported No Lights/[place] Dispatch Reason Pandemic/Epidemic/Outbreak Transported To [facility] Narrative [id number] arrived at a residence to find pt. sitting upright in wheelchair in back bedroom. Pt. reports that she noted redness and swelling in her left leg two days ago, and the pain in her leg has been increasing. Pt. also complains of [address] [address] EMS Patient Care Report Name: CHASIDY DOLL Room #: [facility] ADM IN M.Alison.#: [id number] Admission: 01/20/20 Attend Phys: Michael Trejo MD Discharge: Date of : 30 Report #: [id number] pain in her right leg, which she believes is because she fell out of her wheelchair a few days ago and landed on her right leg. Pt. states she has not been eating well or drinking fluids the past few days due to lethargy and a decrease in appetite. Pt. says the pain is severe and localizes it "all over" both of her legs. Pt. denies headache/dizziness, chest pain, trouble breathing, cough, nausea/vomiting, or any recent illness. Moved pt. to living room via wheelchair. Lifted pt. from wheelchair, secured to cot, and moved to ambulance. En route, initiated venous access, reassessed physical exam, and continued monitoring pt. condition and vital signs. Pt. condition and vital signs remained stable and unchanged. Moved to hospital bed via sheet pull and gave report to RN at [facility]. Initial Vitals @09:46P: 103,R: 18,BP: 158/62,SpO2: 99, @09:34P: 103,R: 16,BP: 170/67,Pain: 8/10,GCS: 15,Glucose: 168,SpO2: 96,Revised Trauma: 12,IA Suspected: false Assessments @09:25MENTAL:Person Oriented,Time Oriented,Event Oriented,Place Oriented,SKIN:HEENT:Head/Face: No Abnormalities,Eyes: No Abnormalities,Neck/Airway: No Abnormalities,LUNG SOUNDS:General: No Abnormalities,Left Upper: No Abnormalities,Right Upper: No Abnormalities,Left Lower: No Abnormalities,Right Lower: No Abnormalities,ABDOMEN:General: No Abnormalities,Left Upper: No Abnormalities,Right Upper: No Abnormalities,Left Lower: No Abnormalities,Right Lower: No Abnormalities,PELVIS//GI:No Abnormalities,EXTREMITIES:Left Leg: Other,Left Leg: Edema,Right Leg: Other,Left Arm: No Abnormalities,Right Arm: No Abnormalities,PULSE:NEURO:No Abnormalities, Impression Cellulitis Procedures @09:38Saline Lock 10cc (20 ga) Site: Antecubital-RightResponse: UnchangedSucceeded Timeline 09:07,Call Received 09:07,Psap Call 09:11,Dispatched 09:12,En Route 09:22,On Scene 09:24,At Patient 09:34,BP: 170/67 M,PULSE: 103,RR: 16 R,SPO2: 96 Ox,ETCO2: ,B,PAIN: 8,GCS: 15, 09:38,Saline Lock 10cc 20 ga Site: Antecubital-Right,Response: UnchangedSucceeded, [facility] [address] [place] [address] EMS Patient Care Report Name: CHASIDY DOLL Room #: 170-16 ADM IN M.R.#: [id number] Admission: 01/20/20 Attend Phys: Michael Trejo MD Discharge: Date of : 30 Report #: [id number] 09:38,Depart Scene 09:46,BP: 158/62 M,PULSE: 103,RR: 18 R,SPO2: 99 Ox,ETCO2: ,BG: ,PAIN: ,GCS: , 09:46,At Destination 10:05,Call Closed Disclaimer v1.1 Copyright 2020 [employer] This EMS Care Summary contains data elements from the applicable legal record (which may be displayed differently). It is designed to provide pertinent information for the following purposes: continuity of care, clinical quality, and state data reporting. The complete legal record is available to ED staff and administrators of the receiving hospital in [employer]'s Patient Tracker. All data is provided "as is."
[2020-01-20 09:57] VITALS: BP 145/62
[2020-01-20 10:43] LABS: ABSOLUTE NEUTROPHILS 12.9 thou/uL (1.4-8.2); BASOPHILS 0.3 % (0.0-2.0); HEMATOCRIT 30.9 % (37.0-47.0); HEMOGLOBIN 9.8 gm/dL (12.0-15.0); LYMPHOCYTES 2.4 % (24.0-44.0); MCHC 31.5 g/dL (28.0-37.0); MCV 85.8 fL (80.0-100.0); MONOCYTES 4.1 % (1.0-8.0); PLATELET COUNT 181 thou/uL (150-400); POLYS 93.2 % (36.0-66.0); RBC 3.61 mil/uL (4.20-5.00); RDW 18.2 % (10.5-14.5); WBC 13.9 thou/uL (4.0-11.0)
[2020-01-20 10:45] LABS: CALCIUM 9.1 mg/dL (8.5-10.1); CREATININE 2.3 mg/dL (0.6-1.0); POTASSIUM 4.6 mmol/L (3.5-5.1)
[2020-01-20 10:52] LABS: ALBUMIN 2.7 g/dL (3.4-5.0); TOTAL BILIRUBIN 0.5 mg/dL (<0.1-1.0)
[2020-01-20 12:14] LABS: ANISOCYTOSIS 2+
[2020-01-20 12:15] LABS: PLATELET ESTIMATE NORMAL
[2020-01-20 12:16] LABS: URINE BILIRUBIN NEGATIVE (Negative); URINE BLOOD NEGATIVE (Negative); URINE CLARITY CLEAR; URINE COLOR YELLOW; URINE GLUCOSE-RANDOM* NEGATIVE (Negative); URINE KETONES NEGATIVE (Negative); URINE LEUKOCYTES-REFLEX NEGATIVE (Negative); URINE NITRITE-REFLEX NEGATIVE (Negative); URINE PROTEIN (DIPSTICK) 1+ (Negative); URINE SPECIFIC GRAVITY 1.015 (1.005-1.035); URINE UROBILINOGEN 0.2 E.U./dl (0.2-1.0)
[2020-01-20 12:35] VITALS: BP 151/58
[2020-01-20 12:36] LABS: CASTS None Seen /LPF (None Seen); MUCUS 0-3 Light strn/LPF (None Seen); SQUAMOUS 0-3 Few /LPF (0-3)
[2020-01-20 12:37] LABS: URINE WBC-REFLEX 0-5 Rare /HPF (0-5)
[2020-01-20 12:38] LABS: AMORPHOUS URATES Few /LPF (None Seen); BACTERIA-REFLEX None Seen /HPF (None Seen); URINE RBC None Seen /HPF (0-2)
[2020-01-20 14:05] VITALS: BP 158/64
[2020-01-20 14:20] VITALS: BP 155/55
[2020-01-20] MEDS ORDERED: LORCET 5-325 M1 EACH PO (14:41)
[2020-01-20 16:15] VITALS: BP 168/67
--- NOTE | 2020-01-20 16:15 | EKG ---
[facility] [place] [address] ELECTROCARDIOGRAM REPORT Name: CHASIDY DOLL Room #: 209-P ADM IN M.R.#: [id number] Admission: 01/20/20 Attend Phys: Michael Trejo MD Discharge: Date of : 30 Report #: [id number] THIS REPORT FOR: cc: Rahul Ojeda MD, Christopher B. MD Lundgren,Gautam Ayala MD [facility] ~ THIS REPORT FOR: //name// 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 : 1930 Requested By: Christina Rodriguez Order Number: [id number] MD: Gautam Montano Measurements Intervals [place] Rate: 103 P: -83 [place]: 194 QRS: 96 QRSD: 112 T: -51 QT: 354 QTc: 464 Interpretive Statements Sinus tachycardia with first-degree AV block Rightward axis Nonspecific intraventricular conduction delay Anteroseptal infarct, age indeterminate Compared to ECG 07/17/2018 11:27:52 Nons[address] change in the ST and T wave segments Electronically Signed On 01-20-2020 16:14:05 CDT by Gautam Montano [email or web address] <ELECTRONICALLY SIGNED> By: Gautam Montano MD, [facility] 01/20/20 1614 1132 1132 Gautam Montano MD, [facility] /EPI
[2020-01-20 20:15] VITALS: BP 127/60; BP 135/54
[2020-01-21 04:44] LABS: HEMATOCRIT 28.5 % (37.0-47.0); HEMOGLOBIN 8.9 gm/dL (12.0-15.0); MCH 26.9 pg (26.0-34.0); MCHC 31.2 g/dL (28.0-37.0); MCV 86.1 fL (80.0-100.0); RBC 3.31 mil/uL (4.20-5.00); RDW 18.5 % (10.5-14.5); WBC 13.6 thou/uL (4.0-11.0)
[2020-01-21 04:45] VITALS: BP 144/45
[2020-01-21 04:59] LABS: CALCIUM 8.5 mg/dL (8.5-10.1); CREATININE 1.7 mg/dL (0.6-1.0); POTASSIUM 3.8 mmol/L (3.5-5.1)
[2020-01-21 07:20] VITALS: BP 159/58
[2020-01-21 11:20] VITALS: BP 151/56
[2020-01-21] MEDS ORDERED: NEURONTIN100 MG PO (11:34)
[2020-01-21 16:35] VITALS: BP 149/56
[2020-01-21 19:45] VITALS: BP 137/49
[2020-01-22 03:23] LABS: HEMOGLOBIN 8.9 gm/dL (12.0-15.0); MCH 27.5 pg (26.0-34.0); MCHC 31.9 g/dL (28.0-37.0); MCV 86.1 fL (80.0-100.0); RBC 3.26 mil/uL (4.20-5.00); RDW 18.5 % (10.5-14.5); WBC 9.6 thou/uL (4.0-11.0)
[2020-01-22 03:34] LABS: CALCIUM 8.5 mg/dL (8.5-10.1); CREATININE 1.6 mg/dL (0.6-1.0); POTASSIUM 3.8 mmol/L (3.5-5.1)
[2020-01-22 04:45] VITALS: BP 148/60
[2020-01-22 08:21] VITALS: BP 142/54
[2020-01-22 14:40] VITALS: BP 132/54
[2020-01-22 20:25] VITALS: BP 132/46
[2020-01-23 02:50] VITALS: BP 136/54
[2020-01-23 06:02] LABS: HEMATOCRIT 24.8 % (37.0-47.0); HEMOGLOBIN 8.1 gm/dL (12.0-15.0); MCH 28.1 pg (26.0-34.0); MCHC 32.5 g/dL (28.0-37.0); MCV 86.7 fL (80.0-100.0); RBC 2.86 mil/uL (4.20-5.00); RDW 19.2 % (10.5-14.5); WBC 7.8 thou/uL (4.0-11.0)
[2020-01-23 06:14] LABS: CALCIUM 7.8 mg/dL (8.5-10.1); CREATININE 1.6 mg/dL (0.6-1.0)
[2020-01-23 08:05] VITALS: BP 137/61
[2020-01-23 15:54] VITALS: BP 155/69
[2020-01-23 19:20] VITALS: BP 135/65
[2020-01-24 04:00] VITALS: BP 131/66
[2020-01-24 08:45] VITALS: BP 131/53
[2020-01-24 16:42] VITALS: BP 111/49
[2020-01-24 21:01] VITALS: BP 118/44
[2020-01-25 03:28] VITALS: BP 131/57
[2020-01-25 07:20] VITALS: BP 139/61
--- NOTE | 2020-01-25 10:56 | HC ---
[facility] [place] [address] CONSULTATION Name: CHASIDY DOLL Room #: 447-P ADM IN M.R.#: [id number] Admission: 01/20/20 Attend Phys: Michael Trejo MD Discharge: Date of : 30 Report #: [id number] THIS REPORT FOR: cc: Rahul Ojeda MD,Blake Onofre MD, MD ~ CC: Rahul Trejo DATE OF SERVICE: 01/20/2020 CHIEF COMPLAINT: Cellulitis of the left lower leg and thigh area. HISTORY OF PRESENT ILLNESS: This is an 89-year-old female patient admitted to the hospital with a history of hypertension and chronic kidney disease, type 2 diabetes mellitus. She developed pain in her left lower extremity with some ulcerations present and increasing pain, swelling, redness to the thigh area. I have been asked to see her with regard to wound care and she has been started on antibiotics, having failed outpatient oral antibiotic therapy. ALLERGIES: PENICILLIN and MORPHINE. PAST MEDICAL HISTORY: Positive for acute on chronic renal failure, cardiomyopathy, cellulitis, congestive heart failure, chronic kidney disease, type 2 diabetes mellitus, hypertension, hyperglycemia, tricuspid regurgitation, urinary tract infection, and weakness. MEDICATIONS: Include Zoloft, Coreg, Cozaar, aspirin, torsemide, hydrocodone, Senokot, Flomax, and Levoxyl. SOCIAL HISTORY: Negative for alcohol or tobacco use. FAMILY HISTORY: Noncontributory. REVIEW OF SYSTEMS: CONSTITUTIONAL: The patient denies fever, chills or weight loss. NEUROLOGICAL: The patient denies focal weakness, numbness or tingling. EYES: The patient denies any visual changes, redness or drainage. ENT: The patient denies earache, nasal drainage or sore throat. CARDIOVASCULAR: The patient denies chest pain, palpitations or diaphoresis. PULMONARY: The patient denies cough or shortness of breath. GASTROINTESTINAL: The patient denies nausea, vomiting, diarrhea or abdominal pain. ORTHOPEDIC: The patient complaining of pain, swelling and redness of the left lower extremity. Other systems in a 14-point review of systems are negative. [facility] [address] [place] [address] CONSULTATION Name: CHASDIY DOLL Room #: 447-P [facility] IN [facility].#: [id number] Admission: 01/20/20 Attend Phys: Michael Trejo MD Discharge: Date of : 30 Report #: [id number] PHYSICAL EXAMINATION: VITAL SIGNS: At this time include temperature 36.9, pulse 105, respiratory rate 18, blood pressure 168/67. GENERAL: This is a chronically ill-appearing female patient who appears to be in no distress. HEENT: Head normocephalic. Nose and throat are clear. NECK: Supple. LUNGS: Clear. HEART: Regular. ABDOMEN: Soft. Bowel sounds present. EXTREMITIES: Lower extremities demonstrate venous type ulcerations to the left pretibial region, significant surrounding erythema that extends up past her knee into her medial thigh on the left side. CLINICAL IMPRESSION: 1. Cellulitis of the left leg including the thigh as well as below knee area. 2. Venous ulcerations, left pretibial region. 3. Acute on chronic renal failure. 4. Type 2 diabetes mellitus. 5. Hypertension. RECOMMENDATIONS: The patient is started on empiric antibiotic therapy, pending culture and sensitivity of the left leg. We will recommend topical gentamicin ointment, Xeroform, ABD and Kerlix. Elevate the legs for edema control. We will consider compression once the cellulitis is better controlled. She will need aggressive nutritional support, continuation of current medications. I appreciate being asked to see her in consultation. <ELECTRONICALLY SIGNED> By: Blake Rogers MD 01/25/20 1056 [id number] Blake Rogers MD /nt
[2020-01-25 15:51] VITALS: BP 132/53
[2020-01-25 19:24] VITALS: BP 121/44
[2020-01-26 04:35] VITALS: BP 144/61
[2020-01-26 08:57] VITALS: BP 151/61
[2020-01-26 15:06] VITALS: BP 142/49
[2020-01-26 19:23] VITALS: BP 137/54
[2020-01-27 04:28] LABS: MCH 27.1 pg (26.0-34.0); MCHC 31.8 g/dL (28.0-37.0)
[2020-01-27 04:30] LABS: HEMATOCRIT 20.7 % (37.0-47.0); HEMOGLOBIN 6.6 gm/dL (12.0-15.0); MCV 85.3 fL (80.0-100.0); RBC 2.42 mil/uL (4.20-5.00); RDW 19.1 % (10.5-14.5); WBC 13.1 thou/uL (4.0-11.0)
[2020-01-27 04:50] LABS: CALCIUM 7.2 mg/dL (8.5-10.1); CREATININE 1.6 mg/dL (0.6-1.0); POTASSIUM 4.4 mmol/L (3.5-5.1)
[2020-01-27 09:27] VITALS: BP 142/56
[2020-01-27] MEDS ORDERED: ROCEPHIN 11 GM/1001 IV (12:05)
== END 2020-01-27 14:41 | DRG 871 ==
LOC: ER 09:56 → 4S 12:38 → EROBS 12:38 → 2N 12:38 → 4S 01-22 08:09
PROVIDERS: Emergency Medicine Emergency Medical Services; ADMIT Hospitalist
DX: A41.9 Sepsis, unspecified organism (principal); E43 Unspecified severe protein-calorie malnutrition; N17.0 Acute kidney failure with tubular necrosis; L03.116 Cellulitis of left lower limb; I42.9 Cardiomyopathy, unspecified; L97.929 Non-pressure chronic ulcer of unspecified part of left lower leg with unspecified severity; I13.0 Hypertensive heart and chronic kidney disease with heart failure and stage 1 through stage 4 chronic kidney disease, or unspecified chronic kidney disease; M25.461 Effusion, right knee; N18.3 Chronic kidney disease, stage 3 (moderate); E11.22 Type 2 diabetes mellitus with diabetic chronic kidney disease; I50.9 Heart failure, unspecified; E03.9 Hypothyroidism, unspecified; I25.10 Atherosclerotic heart disease of native coronary artery without angina pectoris; E11.628 Type 2 diabetes mellitus with other skin complications; M17.11 Unilateral primary osteoarthritis, right knee; Z60.2 Problems related to living alone; G47.00 Insomnia, unspecified; N32.81 Overactive bladder; F32.9 Major depressive disorder, single episode, unspecified; I87.8 Other specified disorders of veins; Z88.6 Allergy status to analgesic agent; Z88.0 Allergy status to penicillin; Z79.82 Long term (current) use of aspirin; Z79.899 Other long term (current) drug therapy; Z82.49 Family history of ischemic heart disease and other diseases of the circulatory system
CPT/HCPCS: 10081; 10102

== ENCOUNTER 2020-02-07 18:42 | Inpatient (IN) | payer MEDICARE ==
[~2020-02-07] VITALS: Ht 152.4 cm; Wt 83.5 kg
--- NOTE | ~2020-02-07 | EMS ---
[facility] [address] [place] [address] EMS Patient Care Report Name: CHASIDY DOLL Room #: 214-P ADM IN M.R.#: [id number] Admission: 02/07/20 Attend Phys: Teja Dickinson Discharge: Date of : 30 Report #: [id number] THIS REPORT FOR: //name// Report Transmitted: 02/08/2020 00:03 EMS Care Summary [facility] MED-ACT Incident [id number] @ 02/07/2020 18:08 Incident Location [address] [place] [address] Patient CHASIDY DOLL Female, 89 Years 1930 Patient Address [address] [place], [place] [id number] Patient History Diabetes,Hypertension (HTN),Depression, Patient Allergies Codeine,Penicillin allergy,Morphine, Patient Medications Carvedilol, Tamsulosin, Glimepiride, Torsemide, Losartan, Synthroid, Hydrocodone, Sertraline, Chief Complaint abnormal labs Disposition Transported No Lights/[place] Dispatch Reason Unconscious/Fainting Transported To [facility] Narrative [id number] arrived on scene to the facility that had EMS wait in the lobby while they brought the patient to EMS. Patient advised that she has had no new [facility] [address] [place] [address] EMS Patient Care Report Name: CHASIDY DOLL Room #: 214-P [facility] IN M.R.#: [id number] Admission: 02/07/20 Attend Phys: Teja Dickinson Discharge: Date of : 30 Report #: [id number] complaints today. They tech that brought the patient to EMS advised they were sending her out for abnormal labs. EMS looked through her paper work to find that her Calcium, Potassium and BUN were all elevated. Patient was transferred to to cot then to ambulance where vitals were obtained. Patient remained to have no complaints throughout EMS care. Bedside report given to QUALITY CONTROL SUPERVISOR at [place] and care transferred. Initial Vitals @18:34P: 75,R: 18,BP: 169/78,Pain: 0/10,GCS: 15,SpO2: 96,Revised Trauma: 12, @18:30P: 70,R: 16,BP: 163/75,Pain: 0/10,GCS: 15,SpO2: 96,Revised Trauma: 12, Assessments @18:26MENTAL:Person Oriented,Time Oriented,Event Oriented,Place Oriented,SKIN:HEENT:Head/Face: No Abnormalities,Eyes: No Abnormalities,Neck/Airway: No Abnormalities,LUNG SOUNDS:General: No Abnormalities,Left Upper: No Abnormalities,Right Upper: No Abnormalities,Left Lower: No Abnormalities,Right Lower: No Abnormalities,ABDOMEN:General: No Abnormalities,Left Upper: No Abnormalities,Right Upper: No Abnormalities,Left Lower: No Abnormalities,Right Lower: No Abnormalities,PELVIS//GI:No Abnormalities,EXTREMITIES:Left Arm: No Abnormalities,Right Arm: No Abnormalities,Left Leg: No Abnormalities,Right Leg: No Abnormalities,PULSE:NEURO:No Abnormalities, Impression No Complaints or Injury/Illness Noted Timeline 18:06,Call Received 18:06,Psap Call 18:08,Dispatched 18:09,En Route 18:17,On Scene 18:26,At Patient 18:30,BP: 163/75 M,PULSE: 70,RR: 16 R,SPO2: 96 Ox,ETCO2: ,BG: ,PAIN: 0,GCS: 15, 18:31,Depart Scene 18:34,BP: 169/78 M,PULSE: 75,RR: 18 R,SPO2: 96 Ox,ETCO2: ,BG: ,PAIN: 0,GCS: 15, 18:36,At Destination 18:55,Call Closed Disclaimer v1.1 Copyright 2020 [employer] This EMS Care Summary contains data elements from the applicable legal record (which may be displayed differently). It is designed to provide pertinent information for the following purposes: continuity of care, clinical quality, and state data reporting. The complete [place] [address] EMS Patient Care Report Name: CHASIDY DOLL Room #: 214-P ADM IN ..#: [id number] Admission: 02/07/20 Attend Phys: Teja Dickinson Discharge: Date of : 30 Report #: [id number] and administrators of the receiving hospital in [employer]'s Patient Tracker. All data is provided "as is."
[~2020-02-07 18:42] MED LIST changes: +LORCET 5-325 M1 EACH PO; +NEURONTIN100 MG PO; +ROCEPHIN 11 GM/1001 IV
[2020-02-07] MEDS ORDERED: NORCO 5-325 TA1 EAC1 PO (19:25)
[2020-02-07 19:33] LABS: ABSOLUTE NEUTROPHILS 4.4 thou/uL (1.4-8.2); EOSINOPHILS 1.6 % (0.0-3.0); LYMPHOCYTES 14.1 % (24.0-44.0); MCH 27.1 pg (26.0-34.0); MCHC 31.8 g/dL (28.0-37.0); MCV 85.1 fL (80.0-100.0); MONOCYTES 6.3 % (1.0-8.0); PLATELET COUNT 454 thou/uL (150-400); RDW 18.3 % (10.5-14.5); WBC 5.7 thou/uL (4.0-11.0)
[2020-02-07 19:35] LABS: HEMOGLOBIN 5.5 gm/dL (12.0-15.0); RBC 2.02 mil/uL (4.20-5.00)
[2020-02-07 19:36] LABS: HEMATOCRIT 17.2 % (37.0-47.0)
[2020-02-07 20:15] LABS: ALBUMIN 1.7 g/dL (3.4-5.0); CREATININE 2.7 mg/dL (0.6-1.0); TOTAL BILIRUBIN 0.2 mg/dL (0.2-1.0); TOTAL PROTEIN 6.9 g/dL (6.4-8.2)
[2020-02-07 20:17] LABS: POTASSIUM 6.5 mmol/L (3.5-5.1)
[2020-02-07 20:51] LABS: INR 1.1
[2020-02-07 20:55] VITALS: BP 138/63
[2020-02-07 20:59] VITALS: BP 158/54
[2020-02-07 21:35] VITALS: BP 146/53
--- NOTE | 2020-02-07 22:59 | NUR ---
PATIENTS CARES WERE ASSUMED AFTER TRANSFER FROM ED. PATTIENT WAS ASSESSED AND ADMITTED TO THE FLOOR. PATIENTS REQUEST IS " make my right knee stop hurting" patient admits to a fall today at the facility were she has been for rehab. Patient states she does not want to go back there. when asked why patient stated " they are mean to me." Patient request is to return to [facility]. after my assessment and admitting this lady. Patient was passed to EDA Bell This is a stable heart patient that I am awear of at this time. Her main c/o pain to bilat. 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
[2020-02-08] VITALS (7 sets, daily range): BP systolic 141–162; BP diastolic 54–92
[2020-02-08 03:04] LABS: URINE BILIRUBIN NEGATIVE (Negative); URINE BLOOD 2+ (Negative); URINE CLARITY CLEAR; URINE COLOR YELLOW; URINE GLUCOSE-RANDOM* NEGATIVE (Negative); URINE KETONES NEGATIVE (Negative); URINE LEUKOCYTES-REFLEX 1+ (Negative); URINE NITRITE-REFLEX NEGATIVE (Negative); URINE PROTEIN (DIPSTICK) 1+ (Negative); URINE SPECIFIC GRAVITY 1.025 (1.005-1.035); URINE UROBILINOGEN 0.2 E.U./dl (0.2-1.0)
[2020-02-08 03:14] LABS: HYALINE CASTS 4-10 Moderate /LPF (None Seen); MUCUS 0-3 Light strn/LPF (None Seen); SQUAMOUS None Seen /LPF (0-3)
[2020-02-08 03:15] LABS: AMORPHOUS URATES Few /LPF (None Seen); BACTERIA-REFLEX 1-9 Few /HPF (None Seen); CRYSTALS None Seen /LPF (None Seen); URINE RBC 3-10 Few /HPF (0-2); URINE WBC-REFLEX 6-15 Few /HPF (0-5)
--- NOTE | 2020-02-08 04:58 | NUR ---
PT LYING IN BED. DENIES NEED FOR PAIN MEDICATION. 1 UNIT PRBC TRANSFUSED. RESTING COMFORTABLY. NO NEEDS VOICED. CALL LIGHT WITHIN REACH. FREQUENT ONSERVATION.
[2020-02-08 05:21] LABS: WBC 5.1 thou/uL (4.0-11.0)
[2020-02-08 05:22] LABS: ABSOLUTE NEUTROPHILS 3.9 thou/uL (1.4-8.2); EOSINOPHILS 1.7 % (0.0-3.0); LYMPHOCYTES 15.5 % (24.0-44.0); MCH 28.5 pg (26.0-34.0); MCHC 33.6 g/dL (28.0-37.0); MCV 84.6 fL (80.0-100.0); MONOCYTES 7.1 % (1.0-8.0); POLYS 74.7 % (36.0-66.0); RBC 2.05 mil/uL (4.20-5.00); RDW 17.3 % (10.5-14.5)
[2020-02-08 05:24] LABS: PLATELET COUNT 378 thou/uL (150-400)
[2020-02-08 05:25] LABS: HEMATOCRIT 17.3 % (37.0-47.0); HEMOGLOBIN 5.8 gm/dL (12.0-15.0); INR 1.1; PROTIME 11.1 Seconds (9.3-11.4)
[2020-02-08 05:27] LABS: CALCIUM 7.2 mg/dL (8.5-10.1); CREATININE 2.5 mg/dL (0.6-1.0)
[2020-02-08 08:17] LABS: % SATURATION 14 % (20-39); IRON 24 ug/dL (50-170); TIBC 168 ug/dL (250-450)
--- NOTE | 2020-02-08 08:34 | EKG ---
[facility] [address] [employer] [place] [address] ELECTROCARDIOGRAM REPORT Name: CHASIDY DOLL Room #: 214-P ADM IN M.R.#: [id number] Admission: 02/07/20 Attend Phys: Teja Dickinson Discharge: Date of : 30 Report #: [id number] THIS REPORT FOR: cc: Shilo Preston MD, Neal A. 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
--- NOTE | 2020-02-08 13:53 | NUR ---
PATIENT SLEEPING INTERMITTENTLY THIS SHIFT. ORIENTED BUT DROWSY AT TIMES. RECEIVED BLOOD ORDERED. RECEIVED MEDICATIONS TO CORRECT POTASSIUM ORDERED. PATIENT HAS NOT HAD BOWEL MOVEMENT OF YET THIS SHIFT, MONITORING FOR BLEEDING AND STOOL SAMPLE TO BE SENT. LUNA REMAINS PATENT AND SECURED, SAMPLE SENT ORDERED. COVID SWAB PERFORMED AND SENT TO LAB PENDING POTENTIAL PROCEDURE TOMORROW. PATIENT IS ASYMPTOMATIC. SPOKE WITH PATIENT'S DAUGHTER TODAY. SHE STATED CONCERNS ABOUT A BED AT PATIENT'S FACILITY BEING HELD FOR PATIENT RETURN. INFORMED CASE MANAGEMENT OF FAMILY CONCERNS, FAMILY GIVEN UPDATE ON PATIENT. FALL PRECAUTIONS REMAIN IN PLACE.
--- NOTE | 2020-02-08 14:08 | 2DMMODE ---
[facility] [address] [place] [address] 2 D/M-MODE ECHOCARDIOGRAM Name: CHASIDY DOLL Room #: 214-P ADM IN M.R.#: [id number] Admission: 02/07/20 Attend Phys: Teja Dickinson Discharge: Date of : 30 Report #: [id number] THIS REPORT FOR: cc: Shilo Preston MD, Neal A. MD Lammoglia, Francisco J. MD ~ APPROVED REPORT Study performed: 02/08/2020 13:14:22 EXAM: Comprehensive 2D, Doppler, and color-flow Echocardiogram Patient Location: Bedside Room #: 214 Status: routine BSA: 1.65 HR: 74 bpm BP: 149/84 mmHg Rhythm: RBBB Other Information Study Quality: Good/no patient cooperation. Flat on back. Indications CHF. Hx: CABG, Cardiomyopathy (30-35% in 2018). 2D Dimensions IVSd: 10.42 (7-11mm) LVOT Diam: 21.27 (18-24mm) LVDd: 51.78 mm PWd: 11.28 (7-11mm) Ascending Ao: 37.89 (22-36mm) LVDs: 38.42 (25-40mm) Aortic Root: 30.94 mm Volumes Left Atrial Volume (Systole) Single Plane 4CH: 76.28 mL Single Plane 2CH: 60.35 mL LA ESV Index: 45.00 mL/m2 Aortic Valve AoV Peak Ga.: 2.05 m/s AO Peak Gr.: 16.90 mmHg LVOT Max P.48 mmHg AO Mean Gr.: 9.78 mmHg AO V2 Mean: 1.50 m/s LVOT Max V: 1.17 m/s [facility] [place] [address] [place] [address] 2 D/M-MODE ECHOCARDIOGRAM Name: CHASIDY DOLL Room #: 214-P [facility] IN [facility].#: [id number] Admission: 02/07/20 Attend Phys: Teja North Mar Discharge: Date of : 30 Report #: [id number] AO V2 VTI: 47.73 cm JAYLON Vmax: 2.03 cm2 Mitral Valve E/A Ratio: 1.4 MV Decel. Time: 145.69 ms MV E Max Ga.: 1.50 m/s MV A Ga.: 1.05 m/s MV PHT: 42.25 ms IVRT: 76.12 ms Pulmonary Valve PV Peak Ga.: 1.36 m/s PV Peak Gr.: 7.40 mmHg Pulmonary Vein P Vein S: 0.52 m/s P Vein D: 1.05 m/s P Vein S/D Ratio: 0.50 Tricuspid Valve TR Peak Ga.: 3.25 m/s RAP Estimate: 15.00 mmHg TR Peak Gr.: 42.20 mmHg PA Pressure: 47.00 mmHg Left Ventricle The left ventricle is normal size. There is normal left ventricular wall thickness. Left ventricular systolic function is mild to moderately decreased. LVEF is 40-45%. Right Ventricle The right ventricle is normal size. Right ventricle is mildly hypokinetic. Atria Left atrium is moderately dilated. Right atrium is mildly dilated. Aortic Valve Aortic valve leaflets are mildly thickened and calcified. Trace aortic regurgitation. There is no aortic valvular stenosis. Mitral Valve The mitral valve is normal in structure. Moderate mitral annular calcification. Moderate to severe mitral regurgitation No evidence of mitral valve stenosis. [facility] [place] [address] [place] [address] 2 D/M-MODE ECHOCARDIOGRAM Name: CHASIDY DOLL Room #: 214-P ADM IN M.R.#: [id number] Admission: 02/07/20 Attend Phys: Teja García Discharge: Date of : 30 Report #: [id number] Tricuspid Valve The tricuspid valve is normal in structure. Moderate tricuspid regurgitation. Estimated PAP is 45mmHg. Pulmonic Valve The pulmonary valve is normal in structure. Mild to moderate pulmonic regurgitation. Great Vessels The aortic root is normal in size. The ascending aorta is borderline dilated. IVC is dilated and collapses <50% with inspiration. Pericardium There is no pericardial effusion. <Conclusion> The left ventricle is normal size. LVEF is 40-45%. The right ventricle is normal size. Right ventricle is mildly hypokinetic. Left atrium is moderately dilated. Right atrium is mildly dilated. Aortic valve leaflets are mildly thickened and calcified. Trace aortic regurgitation. The mitral valve is normal in structure. Moderate mitral annular calcification. Moderate to severe mitral regurgitation The tricuspid valve is normal in structure. Moderate tricuspid regurgitation. Estimated PAP is 45mmHg. The pulmonary valve is normal in structure. Mild to moderate pulmonic regurgitation. The ascending aorta is borderline dilated. There is no pericardial effusion. <ELECTRONICALLY SIGNED> By: Sanju Cadena MD 02/08/20 1406 1406 1406 Sanju Cadena MD /INF
--- NOTE | 2020-02-08 14:43 | NUR ---
Attempted to call patient unavailable, left message on dtrs cell phone to call casemgt. Patient dc from [facility] to [facility] skilled rehab 01/27/20. She readmits to [facility] due to abnormal labs. GI, Cardiology consulted. [facility] reports dtr is not doing bed hold and [facility] is full at this time. For patient to return to [facility] need therapy evals and auth from insurance. Therapy evals in process as patient unable to work today due to low hemoglobin. Plan to confirm plan to return to [facility] with dtr and patient.
[2020-02-08 15:42] LABS: CALCIUM 7.1 mg/dL (8.5-10.1); CREATININE 2.4 mg/dL (0.6-1.0); POTASSIUM 5.6 mmol/L (3.5-5.1)
[2020-02-08 15:53] LABS: HEMATOCRIT 21.4 % (37.0-47.0)
[2020-02-08 15:53] LABS: URINE BILIRUBIN NEGATIVE (Negative); URINE BLOOD 3+ (Negative); URINE CLARITY CLEAR; URINE COLOR YELLOW; URINE GLUCOSE-RANDOM* NEGATIVE (Negative); URINE KETONES NEGATIVE (Negative); URINE LEUKOCYTES 1+ (Negative); URINE NITRITE NEGATIVE (Negative); URINE PROTEIN (DIPSTICK) 2+ (Negative); URINE SPECIFIC GRAVITY 1.025 (1.005-1.035); URINE UROBILINOGEN 0.2 E.U./dl (0.2-1.0)
[2020-02-08 15:59] LABS: URINE CREATININE-RANDOM* 115.7 mg/dL; URINE PROTEIN-RANDOM* 119.2 mg/dL (<11.9)
[2020-02-08 16:14] LABS: CASTS None Seen /LPF (None Seen); URINE RBC >20 Many /HPF (0-2); URINE WBC 6-15 Few /HPF (0-5)
[2020-02-08 16:15] LABS: BACTERIA 1-9 Few /HPF (None Seen); CRYSTALS None Seen /LPF (None Seen); SQUAMOUS 0-3 Few /LPF (0-3)
--- NOTE | 2020-02-08 17:19 | NUR ---
SP with dtr goal to return to [facility] once stable. She has not held bed so hopeful bed avail for return.
[2020-02-09] VITALS (8 sets, daily range): BP systolic 126–169; BP diastolic 58–82
[2020-02-09 04:52] LABS: MCH 28.2 pg (26.0-34.0); MCHC 33.1 g/dL (28.0-37.0); RBC 2.28 mil/uL (4.20-5.00); RDW 17.4 % (10.5-14.5); WBC 4.5 thou/uL (4.0-11.0)
[2020-02-09 04:55] LABS: HEMATOCRIT 19.3 % (37.0-47.0); HEMOGLOBIN 6.4 gm/dL (12.0-15.0)
[2020-02-09 05:10] LABS: ALBUMIN 2.9 g/dL (3.4-5.0); CALCIUM 7.1 mg/dL (8.5-10.1); CREATININE 2.3 mg/dL (0.6-1.0); MAGNESIUM 2.8 mg/dL (1.8-2.4); PHOSPHORUS 7.2 mg/dL (2.5-4.9); POTASSIUM 4.9 mmol/L (3.5-5.1)
--- NOTE | 2020-02-09 05:20 | NUR ---
ASSUMED PT CARE AT 1900. PT IS ALERT AND ORIENTED. PT I SSLEEPING UPON ARRIVAL TO ROOM. PT IS AWAKE DURING ASSESSMENT. NO SIGN OF DISTRESS NOTED IN PT. ASSESSMENT COMPLETED AND DOCUMENTED. VITAL SIGNS STABLE. FALL PRECAUTION IN PLACE. SCHEDUCLED MEDS ADMINISTERED TO PT. TOLERATED PO INTAKE. PT VERBALIZES PAIN AND REQUESTED FOR MAIN MED. PT IS NPO AFTER MN FOR A SCHEDULED EGD. UPON AM LABS,LOW H&H NOTED, 1 UNIT OF PRBC IS ORDERED AND TO BE TRANSFUSED. PT IS STABLE. OCCULT STOOL SENT. PT IS STABLE THROUGHOUT THE NIGHT. NO ACUTE EVENTS. CONTINUE TO MONITOR PT. NO FURTHER NEEDS AT THIS TIME.
--- NOTE | 2020-02-09 10:26 | NUR ---
FAXED CLINICAL UPDATE TO [facility] SPOKE WITH RACHEAL IN ADM SHE RECEIVED UPDATE. DP TO FOLLOW.
[2020-02-09 10:51] LABS: HEMATOCRIT 24.1 % (37.0-47.0); HEMOGLOBIN 8.1 gm/dL (12.0-15.0)
--- NOTE | 2020-02-09 18:41 | NUR ---
RECEIVED PT'S CARE AROUND 0740; PT. ON BED; ALERT; BLOOD INFUSING; VS WNL; DURING ASSESSMENT PT. ALERT TO PERSON & PLACE; FORGETFUL; NPO; C/O PAIN OVER BUTTOCKS; PER REPORT & PICTURES PRESSURE ULCER; WOUND CARE CONSULT; ZGARD APPLIED WITH DRESSING; REPOSITIONED FROM SIDE TO SIDE THROUGH THE DAY; POSITIVE FOR BLOOD OCULT ON STOOL; RE-ASSESSED HH; ABOVE 7; SBP ABOVE 160s; SHERIDAN TEACHING ASSISTANT NOTIFIED; OK TO GIVEN PRN MEDICATION; MEDICATION GIVEN; GONE FOR EGD AFTER 1500; PER PHYSICIAN NOTES RESUME DIET; KRYSTINA TEACHING ASSISTANT NOTIFIED ABOUT CRITICAL RESULTS; NO NEW ORDERS; AROUN 1800 PHYSICIAN PAGED; NOTIFIED ABOUT CRITICAL RESULTS; OK TO RESUME CLEAR LIQUID DIET; C/O PAIN OVER RECTUM; HAD 3 BMs THROUGH THE DAY; SR ON THE MONITOR; ASSESSMENT CHARGED; FOLLOWING POC; WILL PASS ON REPORT;
[2020-02-10 04:10] VITALS: BP 144/52
[2020-02-10 04:11] LABS: HEMATOCRIT 24.7 % (37.0-47.0); HEMOGLOBIN 8.2 gm/dL (12.0-15.0); MCH 28.2 pg (26.0-34.0); MCHC 33.3 g/dL (28.0-37.0); MCV 84.7 fL (80.0-100.0); RBC 2.91 mil/uL (4.20-5.00); WBC 5.6 thou/uL (4.0-11.0)
[2020-02-10 04:14] LABS: ALBUMIN 2.5 g/dL (3.4-5.0); CALCIUM 7.4 mg/dL (8.5-10.1); CREATININE 2.2 mg/dL (0.6-1.0); PHOSPHORUS 6.9 mg/dL (2.5-4.9); POTASSIUM 4.3 mmol/L (3.5-5.1)
[2020-02-10 04:16] LABS: CALCIUM 7.2 mg/dL (8.5-10.1); CREATININE 2.2 mg/dL (0.6-1.0); PHOSPHORUS 7.1 mg/dL (2.5-4.9)
--- NOTE | 2020-02-10 04:42 | NUR ---
CARE ASSUMED AT 1900. Q2 TURNS. DENIES CHEST PAIN, NAUSEA OR VOMITING. C/O LE PAIN ESPECIALLY WITH REPOSITIONING. VITAL SIGNS STABLE. NO EVENTS OVERNIGHT. HGB STABLE THIS AM AT 8.2, Hct 24.7. WILL CONTINUE WITH CURRENT PLAN OF CARE.
[2020-02-10 08:00] VITALS: BP 152/77
[2020-02-10] MEDS ORDERED: TRAMADOL 50 MG50 MG PO (09:16)
[2020-02-10] MEDS ORDERED: SODIUM BICARBO650 M3 PO (09:16)
[2020-02-10] MEDS ORDERED: PEPCID20 MG PO (09:17)
--- NOTE | 2020-02-10 10:24 | NUR ---
WOUND CARE F/U ASSESSED SACRAL/BUTTOCK WOUND W/ DECORATING MACHINE OPERATOR JACOB, LESS ACACIA FROM YESTERDAY, 2 SMALL OPEN AREAS PINK TISSUE ~1CM, SCANT DRAINAGE, COOPERATIVE, NO S/S INFECTION RECOMMENDATIONS ENCOURAGED TURNING, OFF LOADING, ZGUARD AND SACRAL BORDER FOAM, DAILY AND PRN, LOW AIR LOSS PUMP ORDERED DECORATING MACHINE OPERATOR AWARE
--- NOTE | 2020-02-10 11:52 | NUR ---
[facility] can accept for readmission on Thursday as they do not have any beds available until then. They have submitted for ins auth and will likely have that today for Thursday admission. Pt's dtr updated. She is releived that the pt will be here a couple more days and wants her to have a colonoscopy if her hgb drops again. GI indicates they prefer not to scope her d/t weakness but will reconsider doing this Thursday if her hgb drops. They will watch her over the weekend. The attending notified that pt's dtr would like to discuss her plan of care with him. He is aware of above. 5N is not an option as the pt could not tolerate 3 plus hrs of therapy. SNF appears to be best option for rehab [place]. The pt was able to sit up in the chair for a while yesterday and did work with therapy on transfers. Dtr notes that they do not want to look at other SNFs. She has been to [facility] and [facility] and had negative experiences. [facility] is their only choice and she had been there prior to readmission. All parties updated. [facility] plan is to snf at [facility] on Thursday. Will follow.
[2020-02-10 12:24] VITALS: BP 173/64
[2020-02-10 16:00] VITALS: BP 152/68
--- NOTE | 2020-02-10 19:54 | NUR ---
RECEIVED PT'S CARE AROUND 724; PT. ON BED RESTING WITH EYES CLOSED; EQUAL CHEST RISING NOTICED; SA ON THE MONITOR; DURING AM ASSESSMENT ALERT TO PERSON, PLACE & SITUATION; FORGETFUL; AM MEDICATIONS GIVEN; D/C ORDERS ON PLACE; MARTHA MENDEZ NP ROUNDING ON PT; UPDATE ABOUT PT'S STATUS; PNEUMATIC DRUM SANDER UPDATED; DR. LINTON UPDATE ABOUT POSSIBLE COLONOSCOPY ON PT DURING ROUNDING & NO BEDS AVAILABLE AT [facility]; NO NEW ORDERS; DIET CHANGED FROM CL TO REGULAR; TOLERATED WELL; ABLE TO SIT ON CHAIR WITH OT; HAD LARGE BM EARLY ON THE AFTERNOON; TURN FROM SIDE TO SIDE THROUGH THE DAY; WOUND CARE PERFORMED BY WOUND NURSE; DR. RODRIGUEZ UPDATE ABOUT URINE OUTPUT THROUGH THE NIGHT; NO NEW ORDERS; MONITORING; 375 ML THROUGH THE DAY; SA ON THE MONITOR; PRN PAIN MEDICATION GIVEN ON THE AFTERNOON; ASSESSMENT CHARGED; [place] POC; PASSED ON REPORT;
[2020-02-10 20:04] VITALS: BP 156/74
[2020-02-11 03:20] VITALS: BP 149/60
--- NOTE | 2020-02-11 03:53 | NUR ---
PT IS ALERT AND ORIENTED X3. PT FORGETFULL AT TIMES. LUNGS ARE CLEAR ON ROOM AIR. TURN 2 HOURS AND REPOSITION. REFUSED TURNS AT TIMES. EDUCATION GIVEN ON NEED FOR TURNING AND REPOSITION. COCCYX AREA IS PINK AND Z GUARD AND FOAM DRESSING IN PLACE FOR NURSING CARE. LUNA CATH IN PLACE. COMPLAINTS OF RIGHT KNEE PAIN NOTED. PAIN MEDS GIVEN AND REPOSITION . PT SLEEPING NOW. NO ISSUES OR CONCERNS NOTED AT THIS TIME PER NURSING
[2020-02-11 04:02] LABS: HEMATOCRIT 24.2 % (37.0-47.0); MCH 28.3 pg (26.0-34.0); MCHC 33.1 g/dL (28.0-37.0); MCV 85.5 fL (80.0-100.0); RBC 2.83 mil/uL (4.20-5.00); RDW 17.2 % (10.5-14.5); WBC 4.8 thou/uL (4.0-11.0)
[2020-02-11 05:35] LABS: ALBUMIN 2.3 g/dL (3.4-5.0); CALCIUM 7.3 mg/dL (8.5-10.1); CREATININE 2.3 mg/dL (0.6-1.0); PHOSPHORUS 6.5 mg/dL (2.5-4.9); POTASSIUM 4.2 mmol/L (3.5-5.1)
[2020-02-11 07:15] VITALS: BP 161/77
[2020-02-11 10:19] VITALS: BP 141/72
[2020-02-11 11:18] VITALS: BP 155/71
[2020-02-11 14:56] VITALS: BP 131/49
[2020-02-11 19:40] VITALS: BP 132/52
--- NOTE | 2020-02-11 20:08 | NUR ---
ASSUMMED PT CARE AT APPROXIMATELY 0700. PT A&O X3/4. FORGETFUL AT TIMES. ASSESSMENT CHARTED. FALL PRECAUTIONS IN PLACE. PT DENIES HAVING CHEST PAIN. PT DENIES HAVING SOB. PT STATED HER R KNEE HAD PAIN. SPOKE C ORTHO ORTHO ORDERED TOPICAL OINTMENT. TOPICAL OINTMENT APPLIED AND ANALGESICS GIVEN. PT STATED BOTH HELPED RELIEVE PAIN. PT DENIED WANTING MORE ANALGESICS FOR KNEE. ENOURAGED REPOSITIONING. ENOURAGED PT TO EAT AND DRINK FLUIDS. VITAL SIGNS STABLE. BLOOD SUGARS STABLE. EDUCATED PT AND PT'S FAMILY ABOUT POC. PT AND PT'S FAMILY STATED UNDERSTANDING AND DENIED HAVING FURTHER QUESTIONS. WOUND CARE GIVEN. PT COMFORTABLE IN BED. PT DENIES HAVING FURTHER CONCERNS.
[2020-02-12 03:58] VITALS: BP 150/58
--- NOTE | 2020-02-12 05:43 | NUR ---
ASSUME CARE 1900. PT/VITALS STABLE. CONSISTENT RIGHT KNEE PAIN ESPECIALLY WITH MOVEMENT. POOR ACTIVITY TOLERANCE. NO DISTRESS AND ADEQUATE REST NOTED THROUGH THE NIGHT. SR ON MONITOR. ASSESSMENT CHARTED. PROGRESSING WELL WITH POC. PLAN IS POSSIBLE DISCHARGE ON THURSDAY BACK TO FACILITY WHEN BED AVAILABLE. WILL CONITNUE TO MONITOR AND FOLLOW WITH POC
[2020-02-12 05:46] LABS: ABSOLUTE NEUTROPHILS 3.4 thou/uL (1.4-8.2); BASOPHILS 0.9 % (0.0-2.0); EOSINOPHILS 2.9 % (0.0-3.0); HEMATOCRIT 24.9 % (37.0-47.0); HEMOGLOBIN 8.2 gm/dL (12.0-15.0); LYMPHOCYTES 17.7 % (24.0-44.0); MCH 28.2 pg (26.0-34.0); MCHC 32.8 g/dL (28.0-37.0); MCV 85.9 fL (80.0-100.0); MONOCYTES 9.6 % (1.0-8.0); PLATELET COUNT 322 thou/uL (150-400); POLYS 68.9 % (36.0-66.0); RDW 17.2 % (10.5-14.5)
[2020-02-12 06:22] LABS: ALBUMIN 2.3 g/dL (3.4-5.0); CALCIUM 7.2 mg/dL (8.5-10.1); CREATININE 2.4 mg/dL (0.6-1.0); POTASSIUM 4.6 mmol/L (3.5-5.1)
[2020-02-12 07:05] VITALS: BP 150/60
--- NOTE | 2020-02-12 11:05 | NUR ---
PT CARE ASSUMED APPROX 0700. ASSESSMENTS CHARTED. PT DENIES PAIN AND SOA. VSS. ORDERS PLACED TO TRANSFER PT TO MED/SURG UNIT. REPORT GIVEN TO NURSE. RECEIVING NURSE DENIES QUESTIONS OR CONCERNS REGARDING PT'S POC. TELE OFF. PT TRANSPORTED IN BED APPROX 10 MIN AGO.
--- NOTE | 2020-02-12 15:26 | NUR ---
ASSUMED CARE AT 1100, SHIFT ASSESSMENT DONE, MEDS GIVEN, VSS. DENIES PAIN, NAUSEA, VOMITING. BEDREST FOR NOW, LUNA IN PLACE, ADEQUATE OUTPUT. SUPPOSED TO GO TO REHAB TOMORROW.
[2020-02-12 16:59] VITALS: BP 159/65
[2020-02-12 19:05] VITALS: BP 144/55
[2020-02-13 04:43] LABS: HEMATOCRIT 25.4 % (37.0-47.0); HEMOGLOBIN 8.2 gm/dL (12.0-15.0); MCH 27.8 pg (26.0-34.0); MCHC 32.3 g/dL (28.0-37.0); MCV 86.1 fL (80.0-100.0); RBC 2.95 mil/uL (4.20-5.00); RDW 17.3 % (10.5-14.5); WBC 5.2 thou/uL (4.0-11.0)
[2020-02-13 04:58] LABS: ALBUMIN 2.3 g/dL (3.4-5.0); CALCIUM 7.2 mg/dL (8.5-10.1); CREATININE 2.6 mg/dL (0.6-1.0); PHOSPHORUS 5.8 mg/dL (2.5-4.9); POTASSIUM 4.8 mmol/L (3.5-5.1)
[2020-02-13 07:04] VITALS: BP 147/67
--- NOTE | 2020-02-13 07:58 | NUR ---
progress pt a/o x4 vss, turned q2hrs barrier cream to sacrum for stage one looks to be a shearing type wound no drainage or s/s/ of infection noted.continue poc.
--- NOTE | 2020-02-13 12:09 | NUR ---
WOUND CARE F/U; ASSESSED SACRAL/BUTTOCK WOUND W/ ASH KIER BOILER BRIJESH, AREA HEALING, ALMOST CLOSED, PINK VIABLE TISSUE PRESENT, COOPERATIVE, POSSIBLE DC TODAY, REMAINS ON LOW AIR LOSS PUMP TO BED, PHOTO TAKEN, SEE PROCESS INTERVENTION FOR WOUND DETAILS RECOMMENDATIONS; CONT Z GUARD AND SACRAL BORDER FOAM DRSG DAILY AND PRN, CONT LOW AIR LOSS PUMP TO BED, TURN [id number], OFF LOADING ASH KIER BOILER AWARE
--- NOTE | 2020-02-13 13:13 | NUR ---
FAXED CLINICAL UPDATE TO [facility] SPOKE WITH RACHEAL IN ADM SHE RECEIVED UPDATE AND WILL SUBMIT FOR AUTH.
[2020-02-13 15:26] VITALS: BP 178/85
--- NOTE | 2020-02-13 16:27 | NUR ---
THERE WAS ISSUE WITH [employer] GIVING AUTH TODAY. THEY APPARENTLY ATTACHED IT TO A PREVIOUS ACCOUNT. IT WAS REMEDIED BUT AUTH WASN'T GIVEN OF THIS NOTE. ANTICIPATED DC TOMORROW. CM NOTIFIED PHYSICIAN AND PT'S DTR. CM TO FOLLOW INDICATED WITH DC PLANNING.
--- NOTE | 2020-02-13 17:12 | NUR ---
PT IS AOX3, BP IS ELEVATED THIS EVENING 176/85. PULLED LUNA CATHETER PT HAS NOT URINATED. ENCOURAGED PT TO DRINK, IV IS PATENT FLUSHES WELL/SL. CALLED DR. MUÑOZ NO ORDERS RECEIVED. PT BLADDER SCAN AND RESULT IS 0 RETENTION. EXTERNAL FEMALE CATH PLACED. WILL CONTINUE TO MONITOR.
[2020-02-13 19:46] VITALS: BP 147/54
--- NOTE | 2020-02-14 03:00 | NUR ---
PROGRESS PT A/O X 3 FORGETFUL AND CONFUSED AT TIMES. SEEMS ANXIOUS AND IRRITABLE TONIGHT STATES SHE WANTS TO GO HOME. I ADVISED THAT THE SAFEST DISCHARGE PLAN CONSIDERED IS A TRANSFER TO [facility]PLETE THERAPY. REPORTS PAIN TO BACK, BUTTOCKS AND BOTH KNEES WITH THE RIGHT ONE BEING THE SOREST. TAKING TRANADOL SPARINGLY. TOLERATING REG DIET AND THIN LIQUIDS FAIR INTAKE. LUNA DC'D AND PT VOIDING QS NO BM'S THIS SHIFT. POSSIBLE DISCHARGE TO SNF TOMORROW AWAITING INSURANCE AUTHORIZATION.
[2020-02-14 07:23] VITALS: BP 146/55
--- NOTE | 2020-02-14 07:32 | NUR ---
PROGRESS VSS, A/O X4 VERY DEPRESSED WANTS TO GO HOME C/O PAIN TO RIGHT KNEE AND NECK AND BACK REPOSITIONED Q2HRS BARRIER CREAM APPLIED WHERE AVAILABLE SACRAL DRESSING INTACT AND IN PLACE. CONTINUE POC.
[2020-02-14 09:55] VITALS: BP 146/55
--- NOTE | 2020-02-14 12:02 | NUR ---
INSURANCE AUTH WAS RECIEVED FOR PT TO DC TO [facility] THIS DAY. WHEELCHAIR VAN TRANSPORT ARRANGED FOR 1300. CM CALLED AND NOTIFIED PT AND DTR. BOTH ARE AWARE AND AGREEABLE. CHART COPY MADE. ORDERS FAXED. REPORT TO BE CALLED TO . NO OTHER CM INTERVENTION INDICATED. CASE CLOSED.
--- NOTE | 2020-02-14 12:18 | NUR ---
Received awake on bed. Due medications given as prescribed, able to swallow meds w/o difficulty. On room air. Vital signs stable. On Regular diet- tolerating well; no nausea, no vomiting and no abdominal pain noted. On blood sugar monitoring- taken and recorded; with sliding scale insulin prescribed. With external rashid in place- output measured and recorded accordingly. With SL at R EJ- intact and flushing well. With wound at buttocks- discharge photo taken; dressing changed. Max assist. With 3+ edema bilateral legs- kept elevated. Complained of pain, due PRN pain meds given as prescribed, Voltaren gel applied to R Knee as prescribed. Pt's daughter Suzie updated re: pt's status and re: discharge back to [facility] at 1300. Discharge orders from Dr Dickinson made- discharge instructions given. Assisted in eating, drinking and ADLs. To continue monitoring patient.
--- NOTE | 2020-02-15 08:29 | HC ---
[facility] [place] [address] CONSULTATION Name: CHASIDY DOLL Room #: 451-P [facility] IN M.R.#: [id number] Admission: 02/07/20 Attend Phys: Teja Dickinson Discharge: 02/14/20 Date of : 30 Report #: [id number] THIS REPORT FOR: cc: Shilo Preston MD, Neal A. MD Al-Alex,Loc Sow MD ~ CC: Teja Preston DATE OF SERVICE: 02/08/2020 REASON FOR CONSULTATION: Acute kidney injury on top of her chronic kidney disease. REASON FOR PRESENTATION: Abnormal labs. HISTORY OF PRESENT ILLNESS: An 89-year-old who was recently discharged from [facility] to [facility]. She was treated for cellulitis and was discharged to that facility. Recent labs in that facility revealed that her creatinine is around 2.4 with a BUN of 122. She is maintained on diuretics and losartan. The patient is known to have chronic kidney disease and used to follow up with Dr. Henriquez in our clinic. Her values in the clinic showed that her creatinine has been in the 2 range. When the patient presented yesterday, she was found to have a sodium of 127, potassium of 6.5, BUN of 132, creatinine of 2.7 mandating a Nephrology consultation. She was also found to have a significant anemia with a hemoglobin of 5.8. I was consulted to manage her acute kidney injury. The patient denies any active urinary symptoms. She has chronic cardiomyopathy with ejection fractions of around 35%. Her urine output was not recorded; however, she did make some urine in the last 24 hours. MEDICATIONS: 1. Flomax. 2. Carvedilol. 3. Losartan. 4. Gabapentin. 5. Torsemide. 6. Levothyroxine. PAST MEDICAL HISTORY: Extensive and includes the followin. Hypertension. 2. Chronic kidney disease with baseline creatinine of around 2 in our kidney clinic. 3. Cardiomyopathy with ejection fraction of around 30%. 4. Recent cellulitis of the lower extremities. 5. Diabetes mellitus. [facility] [address] [place] [address] CONSULTATION Name: CHASIDY DOLL Candi Room #: 451-P [facility] IN M.R.#: [id number] Admission: 02/07/20 Attend Phys: Teja Dickinson Discharge: 02/14/20 Date of : 30 Report #: [id number] 6. Coronary artery disease, post coronary artery bypass graft. 7. Chronic back pain. 8. Hyperlipidemia. FAMILY HISTORY: Hypertension. SOCIAL HISTORY: She lives in [place]. She was recently placed in a rehab facility. ALLERGIES: PENICILLIN AND MORPHINE. REVIEW OF SYSTEMS: GENERAL: Significant for weakness, but no fever or chills. CARDIOVASCULAR: No chest pain or palpitation. PULMONARY: No cough or hemoptysis. GASTROINTESTINAL: No nausea or vomiting. No hematemesis, no melena. GENITOURINARY: No frequency or urgency. MUSCULOSKELETAL: As per the history of present illness. NEUROLOGICAL: No headache, no dizziness. SKIN: Chronic venous stasis changes. PHYSICAL EXAMINATION: GENERAL: Alert, awake, oriented. Blood pressure is 149/54, temperature is 37.6. HEAD AND NECK: No jugular venous distention, no bruit, no thyromegaly. CHEST: Decreased air entry bilaterally, but no crackles. CARDIOVASCULAR: No rub detected. ABDOMEN: Soft, nontender with no hepatosplenomegaly. LOWER EXTREMITIES: Chronic venous stasis changes. LABORATORY VALUES: Hemoglobin is 5.8. Sodium is 131, potassium is down to 6.0. Carbon dioxide is 18, BUN is 121, creatinine is down to 2.5. IMPRESSION: 1. Acute kidney injury on top of chronic kidney disease. 2. Hyponatremia. 3. Hyperkalemia. 4. Severe anemia. 5. Cardiomyopathy. PLAN: 1. Appropriate workup for her acute kidney injury will be initiated. This seems to be related to her current condition. 2. Hold on any blood pressure medication. 3. Hold all diuretics at this point. 4. Treat her hyperkalemia. [address] [address] CONSULTATION Name: CHASIDY DOLL Room #: 451-P [facility] IN M.R.#: [id number] Admission: 02/07/20 Attend Phys: Teja Dickinson Discharge: 02/14/20 Date of : 30 Report #: [id number] 5. Sodium is rectifying. 6. Discontinue IV fluid. 7. Workup for her anemia. 8. Follow electrolytes. 9. Avoid nephrotoxins. 10. Follow urine output. 11. We will continue to follow. <ELECTRONICALLY SIGNED> By: Loc Cruz MD 02/15/20 0829 0748 [id number] Loc Cruz MD /nt
== END 2020-02-14 13:51 | DRG 682 ==
LOC: ER 18:42 → EROBS 20:38 → 2N 20:38 → 4W 02-12 10:13
PROVIDERS: Hospitalist; Nurse Practitioner Family; ADMIT Hospitalist
PROC: 30233N1 Transfusion of Nonautologous Red Blood Cells into Peripheral Vein, Percutaneous Approach (ICD-10-PCS; principal; 2020-02-08)
PROC: 0DJ08ZZ Inspection of Upper Intestinal Tract, Via Natural or Artificial Opening Endoscopic (ICD-10-PCS; 2020-02-09)
DX: N17.9 Acute kidney failure, unspecified (principal); E43 Unspecified severe protein-calorie malnutrition; I42.9 Cardiomyopathy, unspecified; E87.0 Hyperosmolality and hypernatremia; I13.0 Hypertensive heart and chronic kidney disease with heart failure and stage 1 through stage 4 chronic kidney disease, or unspecified chronic kidney disease; E87.2 Acidosis; E87.1 Hypo-osmolality and hyponatremia; N39.0 Urinary tract infection, site not specified; D62 Acute posthemorrhagic anemia; E87.5 Hyperkalemia; E11.22 Type 2 diabetes mellitus with diabetic chronic kidney disease; N18.3 Chronic kidney disease, stage 3 (moderate); Z79.899 Other long term (current) drug therapy; Z88.4 Allergy status to anesthetic agent; Z88.5 Allergy status to narcotic agent; I25.10 Atherosclerotic heart disease of native coronary artery without angina pectoris; E78.5 Hyperlipidemia, unspecified; G89.29 Other chronic pain; M54.9 Dorsalgia, unspecified; I50.9 Heart failure, unspecified; F32.9 Major depressive disorder, single episode, unspecified; E03.9 Hypothyroidism, unspecified; Z66 Do not resuscitate; M25.461 Effusion, right knee; M62.84 Sarcopenia; I45.10 Unspecified right bundle-branch block; I08.3 Combined rheumatic disorders of mitral, aortic and tricuspid valves; K21.0 Gastro-esophageal reflux disease with esophagitis; S81.802A Unspecified open wound, left lower leg, initial encounter; S81.801A Unspecified open wound, right lower leg, initial encounter; X58.XXXA Exposure to other specified factors, initial encounter; Z90.49 Acquired absence of other specified parts of digestive tract; Z68.36 Body mass index [BMI] 36.0-36.9, adult; Z98.42 Cataract extraction status, left eye; Z98.41 Cataract extraction status, right eye; Z95.1 Presence of aortocoronary bypass graft; Z82.49 Family history of ischemic heart disease and other diseases of the circulatory system; Z87.440 Personal history of urinary (tract) infections; Z79.4 Long term (current) use of insulin; Y93.89 Activity, other specified; Y92.89 Other specified places as the place of occurrence of the external cause; Y99.8 Other external cause status; Z03.818 Encounter for observation for suspected exposure to other biological agents ruled out
CPT/HCPCS: 10040; 10045; 10081; 70005

== ENCOUNTER 2020-03-22 10:23 | Inpatient (IN) | payer OTHER ==
[~2020-03-22] VITALS: Ht 160 cm; Wt 76.9 kg
[2020-03-22] VITALS (12 sets, daily range): BP systolic 74–163; BP diastolic 15–129
--- NOTE | ~2020-03-22 | HC ---
[facility] [place] [address] CONSULTATION Name: CHASIDY DOLL Room #: 438-P ADM IN M.R.#: [id number] Admission: 03/22/20 Attend Phys: Michael Trejo MD Discharge: Date of : 30 Report #: [id number] THIS REPORT FOR: cc: Shilo Preston MD, Neal A. MD Stephens, Thad A. MD ~ CC: Michael Preston DATE OF SERVICE: 03/23/2020 WOUND CARE CONSULTATION PERSONAL PHYSICIAN: Shilo Preston MD CHIEF COMPLAINT: Chronic stasis ulcers and multiple skin tears. HISTORY OF PRESENT ILLNESS This is an 89-year-old white female who is a previous patient of ours for chronic venous stasis ulcers as well as multiple skin tears to all extremities. The patient is currently admitted for increasing lethargy and was found to have markedly elevated creatinine at 9.6 and elevated BUN at 177. The patient herself is in the ICU and is obtunded and appears critically ill. Nursing staff states the family has decided to make her comfort measures only at this time. The patient is unable to give any further history. Approximately a week ago, I have seen the patient and her sister in a skilled facility. At that time, the patient's previous venous leg ulcers bilaterally had healed; however, the patient still had multiple superficial skin tears all in various stages of healing, but none appear to be infected. There are no other wound care concerns per the nursing staff. PAST MEDICAL HISTORY: Significant for chronic venous stasis with recurrent ulcers, type 2 diabetes, chronic kidney disease, congestive heart failure, cardiomyopathy, depression, coronary artery disease with previous bypass grafting, recurrent urinary tract infections. CURRENT MEDICATIONS: Multiple. DRUG ALLERGIES: PENICILLIN, MORPHINE. SOCIAL HISTORY: Per old records, has no history of alcohol or tobacco use. FAMILY HISTORY AND REVIEW OF SYSTEMS: Unobtainable because of the patient's obtunded state. PHYSICAL EXAMINATION: [facility] [address] [place] [address] CONSULTATION Name: CHASIDY DOLL Room #: 438-P [facility] IN [facility]#: [id number] Admission: 03/22/20 Attend Phys: Michael Trejo MD Discharge: Date of : 30 Report #: [id number] VITAL SIGNS: Temperature 36.1, pulse 96, respirations 18, and blood pressure was 117/54. GENERAL: This is an obtunded white female who appears critically ill. HEENT: Normocephalic and atraumatic. Mucous membranes are exquisitely dry. NECK: Without obvious JVD. LUNGS: Diminished breath sounds heard throughout. HEART: Regular. ABDOMEN: Obese, soft, nontender. EXTREMITIES: The patient has multiple superficial skin tears in various stages of healing without signs of infection. On the right lower extremity, there is superficial chronic stasis dermatitis without signs of infection. The patient has trace to 1+ edema bilateral lower extremities. Bilateral heels are intact. NEUROLOGIC: Cranial nerves 2-12 grossly intact. Motor and sensory grossly intact; however, the patient is obtunded. LABORATORY DATA: White count 6.6, hemoglobin 6.7. BUN 159, creatinine 8.9, potassium 5.0. IMPRESSION: 1. Chronic venous stasis dermatitis, bilateral lower extremities, right greater than left, without signs of infection. 2. Multiple skin tears to all extremities in various stages of healing without signs of cellulitis. 3. Acute on chronic kidney failure. 4. Generalized debility. PLAN: At this time, we will start AmLactin to bilateral lower extremities, leave open to air. The patient is already on a low air loss mattress given her generalized debility and inability to turn herself, she will need to be turned every 2 hours. We will continue with gauze dressings to the superficial skin tears, change daily. At this time, the patient appears to be critically ill and family has decided to go with comfort measures only, which seems very appropriate. We will continue to follow the patient as needed. I appreciate the ability to consult. By: [id number] Jordan Gordon MD /terry
--- NOTE | ~2020-03-22 | HC ---
[facility] [address] CONSULTATION Name: CHASIDY DOLL Room #: 242-P ADM IN M.R.#: [id number] Admission: 03/22/20 Attend Phys: Michael Trejo MD Discharge: Date of : 30 Report #: [id number] THIS REPORT FOR: cc: Shilo Preston MD,Shilo Cantu-Alex,Loc Sow MD ~ CC: Michael Preston REASON FOR THE CONSULTATION: Acute kidney injury. REASON FOR THE PRESENTATION: Lethargy. HISTORY OF PRESENT ILLNESS: This is obtained from the medical chart. The patient is currently very confused and not able to provide me with the details. She is an 89-year-old who I evaluated back in January of this year. She is known to have hypertensive arterionephrosclerosis. She is known to have cardiomyopathy with ejection fractions of around 30%. She has chronic kidney disease and used to follow up with Dr. Henriquez in our clinic. Her baseline creatinine used to be around 2.0. She was admitted in the month of January for bilateral lower extremity issues. She had an acute kidney injury with a creatinine peaking at 2.7; however, upon discharge, this was down to 2.2. She presented with lethargy yesterday and was found to have very significant excoriating skin rash with a very significant acute kidney injury with a BUN of 162 and a creatinine of 8.8. I was consulted to manage her acute kidney injury. PAST MEDICAL HISTORY: 1. Cardiomyopathy with ejection fractions of around 35%. 2. Bilateral lower extremity wounds. 3. Hypertension. 4. Chronic kidney disease. 5. Diabetes mellitus. 6. Hypothyroidism. PAST SURGICAL HISTORY. 1. Coronary artery disease, bypass grafting x 3. 2. Appendix surgery. 3. Gallbladder surgery. 4. Tonsillectomy, this is obtained from the medical chart. SOCIAL HISTORY: Unable to obtain given the patient's current mental status. FAMILY HISTORY: Unable to obtain given the patient's current mental status; however, it is documented that the mother had heart disease and the father also had heart disease. [facility] [address] [place] [address] CONSULTATION Name: CHASIDY DOLL Room #: 242-P [facility] IN .R.#: [id number] Admission: 03/22/20 Attend Phys: Michael Trejo MD Discharge: Date of : 30 Report #: [id number] REVIEW OF SYSTEMS: Unable to obtain given the patient's current mental status. OUTPATIENT MEDICATIONS LISTED: 1. Flomax. 2. Carvedilol. 3. Aspirin. 4. Gabapentin. 5. Sodium bicarbonate. 6. Levothyroxine. PHYSICAL EXAMINATION: GENERAL: She is confused. She is very lethargic. VITAL SIGNS: Blood pressure is 105/____, temperature is 35.3, pulse rate is 89. HEAD AND NECK: No jugular venous distention. CHEST: Decreased air entry bilaterally. CARDIOVASCULAR: No rub. ABDOMEN: Soft. EXTREMITIES: Lower extremities, dressing applied in bilateral lower extremity areas. SKIN: There is a diffuse erythema on the face, neck, upper extremities and lower extremities. There is diffuse skin breakdown. There are diffuse excoriated skin lesions on the chest, abdomen, upper extremities. LABORATORY VALUES: Revealed a hemoglobin of 6.7, pH of 7.25. Sodium of 138. BUN of 159, creatinine of 8.9. ASSESSMENT, IMPRESSION, PLAN: 1. Acute kidney injury. 2. Gram-positive bacteremia. 3. Recent hospitalizations for cellulitis. 4. Encephalopathy. 5. Anemia. 6. Septic shock. 7. Cardiomyopathy. 8. Diffuse skin rash, likely related to her current infection with potential differential diagnosis including staphylococcal toxic shock syndrome, streptococcal toxic shock syndrome. 9. The patient is in acute kidney failure due to her septic shock, gram-positive bacteremia with what seems to be toxic shock syndrome with diffuse skin rash, other potential differential diagnosis should be kept in mind. This is a very unfortunate situation. The patient is a no code status. Continue with IV fluid. I do not think any heroic [place] [address] CONSULTATION Name: CHASIDY DOLL Room #: 242-P ADM IN M.R.#: [id number] Admission: 03/22/20 Attend Phys: Michael Trejo MD Discharge: Date of : 30 Report #: [id number] given her comorbid conditions. I will reach out to the daughter to discuss. She is not a candidate for dialysis. By: 0721 Loc Cruz MD /nt
--- NOTE | ~2020-03-22 | EMS ---
[address] [address] EMS Patient Care Report Name: CHASIDY DOLL Room #: REG SHAWN Schmitz#: [id number] Admission: 03/22/20 Attend Phys: Discharge: Date of : 30 Report #: [id number] THIS REPORT FOR: //name// Report Transmitted: 03/22/2020 10:51 EMS Care Summary [facility] Incident [id number] @ 03/22/2020 09:38 Incident Location [address] [place] [address] Patient CHASIDY DOLL Female, 89 Years 1930 Patient Address [address] [place] [address] Patient History Diabetes,Hypertension (HTN),Depression, Patient Allergies Codeine,Penicillin allergy,Morphine, Patient Medications Torsemide, Hydrocodone, Sertraline, Carvedilol, Synthroid, Losartan, Glimepiride, Tamsulosin, Chief Complaint Lethargy Disposition Transported No Lights/[place] [facility] Reason Unconscious/Fainting Transported To [facility] Narrative C - Lethargy, hypotension, and complete body coverage in sores. [address] [address] EMS Patient Care Report Name: CHASIDY DOLL Room #: REG SHAWN Schmitz#: [id number] Admission: 03/22/20 Attend Phys: Discharge: Date of : 30 Report #: [id number] - [id number] arrived on scene to a local assisted living facility to find Ms. Doll an 89 y/o female found lying in supine position in her bed. Ms. Doll was found HOLLY to person and event with some slight confusion noted. Ms. Doll was able to speak in full and complete sentences, and she was extremely upset that our crew was on scene. Staff on scene reported that the patient's baseline mental status has some noted confusion. 911 was initiated this morning by staff after they felt like the patient was much more lethargic and altered than normal. Staff on scene reported that they had no seen the patient since Thursday, but they noted that she is much more lethargic and out of it than normal. Ms. Doll continued to be very upset with our crew and having to go to the hospital. LT. Resendiz made contact with the patient's DPOA and she also reported that the patient needed to be transported to the hospital for further evaluation. Staff reported that the patient has only been living at their facility for a week and they reported that she had arrived there after being hospitalized in [place]. Ms. Doll's only subjective complaint during our interaction was that she was just hurting everywhere. The patient refused to describe or go into depth about her pain, and she reported to our crew that she was tired of talking to us. Staff denied any recent trauma, and they did report that the patient had a medication change on 03/20. They reported that Ms. Doll's diuretic had been increased to help with her severe lower leg edema. Staff also reported that the patient has not been eating or drinking enough fluids. R - Initial assessment, physical examination, V/s with 12 lead and BGL, pt. moved to stretcher, IV tourniquet applied but due to severe skin damage no access was obtained, continued reassessment. T - No change was noted in the patient's V/s, presentation, or complaint during transport. The patient was moved over into bed in ED room 10 via sheet drag without incident with report given to ED RN. Initial Vitals @09:55P: 110,BP: 94/59, @09:55P: 91,SpO2: 97,VT Suspected: false @10:14P: 92,R: 16,BP: 94/48,GCS: 14,SpO2: 97,Revised Trauma: 12, @10:05P: 89,BP: 91/48,SpO2: 93, @09:51P: 89,SpO2: 97, @09:47P: 107,R: 18,BP: 92/42,Pain: 4/10,GCS: 14,Temp: 96.1F,Glucose: 160,SpO2: 98,Revised Trauma: 12, Assessments @09:46MENTAL:Confused,Person Oriented,Event Oriented,SKIN:Other,HEENT:LUNG SOUNDS:ABDOMEN:PELVIS//GI:EXTREMITIES:Right Leg: Edema,Left Leg: Edema,Right Arm: Other,Left Arm: Other,PULSE:NEURO: Impression [address] [address] EMS Patient Care Report Name: CHASIDY DOLL Candi Room #: REG SHAWN Schmitz#: [id number] Admission: 03/22/20 Attend Phys: Discharge: Date of : 30 Report #: [id number] Generalized Weakness Procedures @09:5212-Lead ECGResponse: UnchangedSucceeded@09:5512-Lead ECGResponse: UnchangedSucceeded@10:00Surgical Mask on PatientResponse: Unchanged Timeline 09:37,Call Received 09:37,Psap Call 09:38,Dispatched 09:38,En Route 09:42,On Scene 09:45,At Patient 09:47,BP: 92/42 M,PULSE: 107,RR: 18 R,SPO2: 98 Ox,ETCO2: ,B,PAIN: 4,GCS: 14, 09:51,BP: / M,PULSE: 89,RR: R,SPO2: 97 Ox,ETCO2: ,BG: ,PAIN: ,GCS: , 09:52,12-Lead ECG,Response: UnchangedSucceeded, 09:55,12-Lead ECG,Response: UnchangedSucceeded, 09:55,BP: / M,PULSE: 91,RR: R,SPO2: 97 Ox,ETCO2: ,BG: ,PAIN: ,GCS: , 09:55,BP: 94/59 M,PULSE: 110,RR: R,SPO2: Ox,ETCO2: ,BG: ,PAIN: ,GCS: , 10:00,Surgical Mask on Patient,Response: Unchanged 10:05,BP: 91/48 M,PULSE: 89,RR: R,SPO2: 93 Ox,ETCO2: ,BG: ,PAIN: ,GCS: , 10:08,Depart Scene 10:14,BP: 94/48 M,PULSE: 92,RR: 16 R,SPO2: 97 Ox,ETCO2: ,BG: ,PAIN: ,GCS: 14, 10:16,At Destination 10:36,Call Closed Disclaimer v1.1 Copyright 2020 [employer] This EMS Care Summary contains data elements from the applicable legal record (which may be displayed differently). It is designed to provide pertinent information for the following purposes: continuity of care, clinical quality, and state data reporting. The complete legal record is available to ED staff and administrators of the receiving hospital in [employer]'s Patient Tracker. All data is provided "as is."
[~2020-03-22 10:23] MED LIST changes: +NORCO 5-325 TA1 EAC1 PO; +PEPCID20 MG PO
[2020-03-22 11:00] LABS: ABSOLUTE NEUTROPHILS 3.8 thou/uL (1.4-8.2); BASOPHILS 0.9 % (0.0-2.0); EOSINOPHILS 7.1 % (0.0-3.0); HEMATOCRIT 22.2 % (37.0-47.0); HEMOGLOBIN 7.1 gm/dL (12.0-15.0); LYMPHOCYTES 19.9 % (24.0-44.0); MCH 27.8 pg (26.0-34.0); MCV 86.8 fL (80.0-100.0); MONOCYTES 6.3 % (1.0-8.0); PLATELET COUNT 201 thou/uL (150-400); POLYS 65.8 % (36.0-66.0); RBC 2.56 mil/uL (4.20-5.00); RDW 18.7 % (10.5-14.5); WBC 5.8 thou/uL (4.0-11.0)
[2020-03-22 11:15] LABS: CALCIUM 7.4 mg/dL (8.5-10.1); CREATININE 9.6 mg/dL (0.6-1.0); MAGNESIUM 2.7 mg/dL (1.8-2.4); POTASSIUM 5.2 mmol/L (3.5-5.1)
[2020-03-22 12:22] LABS: URINE BILIRUBIN NEGATIVE (Negative); URINE BLOOD 3+ (Negative); URINE CLARITY TURBID; URINE COLOR YELLOW; URINE GLUCOSE-RANDOM* NEGATIVE (Negative); URINE KETONES TRACE (Negative); URINE LEUKOCYTES-REFLEX 2+ (Negative); URINE NITRITE-REFLEX NEGATIVE (Negative); URINE PROTEIN (DIPSTICK) 2+ (Negative); URINE SPECIFIC GRAVITY 1.025 (1.005-1.035); URINE UROBILINOGEN 0.2 E.U./dl (0.2-1.0)
[2020-03-22 12:39] LABS: CASTS None Seen /LPF (None Seen); SQUAMOUS 0-3 Few /LPF (0-3); URINE WBC-REFLEX >25 Many /HPF (0-5)
[2020-03-22 12:40] LABS: BACTERIA-REFLEX >30 Many /HPF (None Seen); CRYSTALS None Seen /LPF (None Seen); URINE RBC 0-2 Rare /HPF (0-2); WBC CLUMPS Packed (None Seen); YEAST-REFLEX Present (None Seen)
[2020-03-22 12:43] LABS: ANISOCYTOSIS 1+; PLATELET ESTIMATE NORMAL
--- NOTE | 2020-03-22 12:47 | EKG ---
[facility] [place] [address] ELECTROCARDIOGRAM REPORT Name: CHASIDY DOLL Room #: 170- ADM IN M.R.#: [id number] Admission: 03/22/20 Attend Phys: Michael Trejo MD Discharge: Date of : 30 Report #: [id number] THIS REPORT FOR: cc: Shilo Preston MD, Neal A. MD Couchonnal, Luis F. 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
[2020-03-22 13:05] LABS: BE(vivo) -9.5 mmol/L (-2 to +3); HCO3 16.3 mmol/L (22.0-26.0); PO2 101.9 mmHg (80.0-100.0); sO2 97.1 % (92.0-98.0)
[2020-03-22 13:06] LABS: pH 7.285 (7.360-7.450)
[2020-03-22] MEDS ORDERED: NYSTATIN 100,0015 G1 TOP (13:17)
[2020-03-22] MEDS ORDERED: HYDROCODON-ACE1 EAC7 PO (13:17)
[2020-03-22] MEDS ORDERED: ONDANSETRON HCL4 M2 PO (13:18)
[2020-03-22] MEDS ORDERED: SERTRALINE HCL100 MG PO (13:18)
[2020-03-22] MEDS ORDERED: TORSEMIDE20 MG PO (13:19)
[2020-03-22] MEDS ORDERED: VITAMIN C500 M1 PO (13:20)
[2020-03-22 15:13] LABS: CREATININE 8.8 mg/dL (0.6-1.0)
[2020-03-23] VITALS (42 sets, daily range): BP systolic 56–267; BP diastolic 19–240
[2020-03-23 05:54] LABS: HEMOGLOBIN 6.7 gm/dL (12.0-15.0); MCHC 31.9 g/dL (28.0-37.0)
[2020-03-23 05:59] LABS: ABSOLUTE NEUTROPHILS 4.5 thou/uL (1.4-8.2); EOSINOPHILS 1.7 % (0.0-3.0); MCH 28.2 pg (26.0-34.0); MCV 88.2 fL (80.0-100.0); MONOCYTES 7.4 % (1.0-8.0); PLATELET COUNT 230 thou/uL (150-400); POLYS 68.9 % (36.0-66.0); RBC 2.38 mil/uL (4.20-5.00); WBC 6.6 thou/uL (4.0-11.0)
[2020-03-23 06:20] LABS: CALCIUM 7.1 mg/dL (8.5-10.1); CREATININE 8.9 mg/dL (0.6-1.0); MAGNESIUM 2.5 mg/dL (1.8-2.4)
== END 2020-03-24 16:36 | DRG 871 ==
LOC: ER 10:23 → EROBS 12:19 → ICU 12:19 → 4S 03-23 18:29
PROVIDERS: Emergency Medicine; Nurse Practitioner; ADMIT Hospitalist; ATTEND Hospitalist
PROC: 02HV33Z Insertion of Infusion Device into Superior Vena Cava, Percutaneous Approach (ICD-10-PCS; principal; 2020-03-22)
DX: A41.9 Sepsis, unspecified organism (principal); G92 Toxic encephalopathy; E43 Unspecified severe protein-calorie malnutrition; R65.21 Severe sepsis with septic shock; N17.9 Acute kidney failure, unspecified; N39.0 Urinary tract infection, site not specified; I42.9 Cardiomyopathy, unspecified; I13.0 Hypertensive heart and chronic kidney disease with heart failure and stage 1 through stage 4 chronic kidney disease, or unspecified chronic kidney disease; T68.XXXA Hypothermia, initial encounter; E11.22 Type 2 diabetes mellitus with diabetic chronic kidney disease; N18.3 Chronic kidney disease, stage 3 (moderate); F32.9 Major depressive disorder, single episode, unspecified; I50.9 Heart failure, unspecified; E03.9 Hypothyroidism, unspecified; D64.9 Anemia, unspecified; I87.2 Venous insufficiency (chronic) (peripheral); E87.5 Hyperkalemia; I34.0 Nonrheumatic mitral (valve) insufficiency; R21 Rash and other nonspecific skin eruption; Z66 Do not resuscitate; Z51.5 Encounter for palliative care; Z90.89 Acquired absence of other organs; Z90.49 Acquired absence of other specified parts of digestive tract; Z79.82 Long term (current) use of aspirin; Z79.899 Other long term (current) drug therapy; Z79.891 Long term (current) use of opiate analgesic; Z88.5 Allergy status to narcotic agent; Z88.0 Allergy status to penicillin; Z87.440 Personal history of urinary (tract) infections; Z98.42 Cataract extraction status, left eye; Z98.41 Cataract extraction status, right eye; Z82.49 Family history of ischemic heart disease and other diseases of the circulatory system; Z68.30 Body mass index [BMI] 30.0-30.9, adult; Z95.1 Presence of aortocoronary bypass graft
CPT/HCPCS: 10078; 10102